=== PATIENT | female | born 1935 | race Caucasian/White ===

== ENCOUNTER 2022-12-21 12:47 | Inpatient (IN) | payer MEDICARE, SELFPAY ==
[2022-12-21] VITALS (14 sets, daily range): BP systolic 151–191; BP diastolic 73–99; PULSE 88–96; RESP 12–22; TEMP 36.3–36.8; O2SAT 94–98; BMI 23.3
--- NOTE | 2022-12-21 12:54 | DI.RAD.S_ITS ---
PROCEDURE: XR PELVIS 1-2V INDICATIONS: hip pain TECHNIQUE: An AP view of the pelvis and a dedicated AP view of the right hip were acquired. COMPARISON: None. FINDINGS: Bones: There is a moderately displaced, impacted, mildly comminuted fracture of the subcapital right femoral neck. No hip dislocation can be seen. No fractures of the bones of the pelvis can be seen. Soft tissues: Visualized bowel gas pattern is normal. No suspicious soft tissue calcifications. IMPRESSION: Subcapital right femoral neck fracture. Dictated by: Ángel Baron M.D. on 12/21/2022 at 12:55 Approved by: Ángel Baron M.D. on 12/21/2022 at 12:55
--- NOTE | 2022-12-21 12:58 | ED_ITS ---
HPI - Extremity Injury (Lower) <Leticia Bolton PA-C - Last Filed: 12/21/22 16:04> General Chief Complaint: Extremity Injury, Lower Stated Complaint: GLF w/ hip pain Time Seen by Provider: 12/21/22 12:50 Source: patient and EMS Mode of arrival: EMS History of Present Illness HPI Narrative: Patient is an 87-year-old female who tripped and fell over her 's cane earlier today and landed on her right hip and immediately experienced significant pain and could not walk. She was brought to the emergency [facility] by [facility]. She takes no medications, stating that all medications including antibiotics make her sick. She did receive 50 mics of fentanyl and Zofran on the flight over. She reports taking homeopathic remedies. She reports no significant medical problems. She is normally independently ambulatory. She did not hit her head or lose consciousness at the time of this fall. She has intermittent baseline numbness and tingling in her feet, this is not worse since her fall. Related Data Home Medications Medication Instructions Recorded Confirmed melatonin 3 mg tablet 3 mg PO BEDTIME 12/21/22 12/21/22 Allergies Allergy/AdvReac Type Severity Reaction Status Date / Time No Known Drug Allergies Allergy Verified 12/21/22 12:58 Review of Systems <Leticia Bolton PA-C - Last Filed: 12/21/22 16:04> Review of Systems ROS Unobtainable: All systems reviewed & are unremarkable except as noted in HPI and below Patient History <Leticia Bolton PA-C - Last Filed: 12/21/22 16:04> Social History Smoking Status: Never smoker Smoking Status: Never smoker alcohol intake frequency: other Substance Use Type: does not use Exam <Leticia Bolton PA-C - Last Filed: 12/21/22 16:04> Narrative Exam Narrative: GENERAL: 87 year old patient appears stated age. Well-developed patient, in no distress. NEURO: AOx3. HEAD: Atraumatic. Normocephalic. EYES: Pupils equal round and reactive. Extraocular motions intact. No scleral icterus. No injection or drainage. ENT: Nose without bleeding or purulent drainage. Airway patent. CARDIOVASCULAR: Regular rate and rhythm without murmurs, gallops, or rubs. RESPIRATORY: Clear to auscultation. Breath sounds equal bilaterally. No wheezes, rales, or rhonchi. GASTROINTESTINAL: Abdomen soft, non-tender, nondistended. EXTREMITIES: Pain in right hip. Distal circulation intact, strength 5/5 distal to the injury with ankle flexion and extension. Foot is warm and DP pulse 2 +. SKIN: No rash or erythema of visible areas Initial Vital Signs Initial Vital Signs: Vital Signs Temperature 98 F 12/21/22 12:54 Pulse Rate 91 H 12/21/22 12:54 Respiratory Rate 17 12/21/22 12:54 Blood Pressure 171/93 H 12/21/22 12:54 Pulse Oximetry 98 12/21/22 12:54 Oxygen Delivery Method Room Air 12/21/22 12:54 <Bruno Robbins DO - Last Filed: 12/21/22 16:35> Initial Vital Signs Initial Vital Signs: Vital Signs Temperature 98 F 12/21/22 12:54 Pulse Rate 91 H 12/21/22 12:54 Respiratory Rate 17 12/21/22 12:54 Blood Pressure 171/93 H 12/21/22 12:54 Pulse Oximetry 98 12/21/22 12:54 Oxygen Delivery Method Room Air 12/21/22 12:54 Course <Leticia Bolton PA-C - Last Filed: 12/21/22 16:04> Orders Ordered: ED Orders 12/21/22 12:54 XR pelvis 1-2V Stat 12/21/22 12:58 Complete Blood Count AUTO DIFF Stat Comprehensive Metabolic Panel Stat Ethanol (ETOH) Stat PTT Partial Thromboplastin Armond Stat Prothrombin Time INR Stat Type and Screen Stat 12/21/22 13:26 EKG-12 Lead Stat 12/21/22 13:30 XR hip RT 1V Stat Discontinued Medications Diphtheria/Tetanus/Acell Pertussis (Tet,Diph,Pertuss(Acell),Vac/Pf 0.5 Ml Syringe) 0.5 ml IM .ONCE ONE Stop: 12/21/22 13:02 Last Admin: 12/21/22 14:55 Dose: Not Given Documented By: ANJUM Sodium Chloride (Normal Saline 0.9%) 1,000 mls @ 500 mls/hr IV BOLUS ONE Stop: 12/21/22 15:00 Last Infusion: 12/21/22 15:48 Dose: 0 mls/hr Documented By: Admin: 12/21/22 13:33 Dose: 500 mls/hr Documented By: ETHAN Consultations Consultation #1: [id number]: Dr. Johnson, orthopedics: consulted for operative repair. Hospitalist to admit. Vital Signs Vital signs: Vital Signs - 8 hr 12/21/22 12:54 12/21/22 13:14 12/21/22 13:30 Temperature 98 F Pulse Rate 91 H 91 H Respiratory Rate 17 22 Blood Pressure 171/93 H 151/73 H Pulse Oximetry 98 97 Oxygen Delivery Method Room Air 12/21/22 13:30 12/21/22 14:16 12/21/22 14:17 Temperature Pulse Rate 88 89 Respiratory Rate 12 Blood Pressure 178/79 H Pulse Oximetry 96 Oxygen Delivery Method 12/21/22 14:17 12/21/22 14:30 12/21/22 14:30 Temperature Pulse Rate 91 H 96 H Respiratory Rate Blood Pressure 191/84 H Pulse Oximetry 96 96 Oxygen Delivery Method 12/21/22 15:00 12/21/22 15:00 12/21/22 15:30 Temperature Pulse Rate 89 Respiratory Rate Blood Pressure 157/76 H 172/87 H Pulse Oximetry 97 Oxygen Delivery Method 12/21/22 15:30 Temperature Pulse Rate 90 Respiratory Rate Blood Pressure Pulse Oximetry 96 Oxygen Delivery Method <Bruno Robbins DO - Last Filed: 12/21/22 16:35> Orders Ordered: ED Orders 12/21/22 12:54 XR pelvis 1-2V Stat 12/21/22 12:58 Complete Blood Count AUTO DIFF Stat Comprehensive Metabolic Panel Stat Ethanol (ETOH) Stat PTT Partial Thromboplastin Armond Stat Prothrombin Time INR Stat Type and Screen Stat 12/21/22 13:26 EKG-12 Lead Stat 12/21/22 13:30 XR hip RT 1V Stat Discontinued Medications Diphtheria/Tetanus/Acell Pertussis (Tet,Diph,Pertuss(Acell),Vac/Pf 0.5 Ml Syringe) 0.5 ml IM .ONCE ONE Stop: 12/21/22 13:02 Last Admin: 12/21/22 14:55 Dose: Not Given Documented By: ANJUM Sodium Chloride (Normal Saline 0.9%) 1,000 mls @ 500 mls/hr IV BOLUS ONE Stop: 12/21/22 15:00 Last Infusion: 12/21/22 15:48 Dose: 0 mls/hr Documented By: Admin: 12/21/22 13:33 Dose: 500 mls/hr Documented By: ETHAN Vital Signs Vital signs: Vital Signs - 8 hr 12/21/22 12:54 12/21/22 13:14 12/21/22 13:30 Temperature 98 F Pulse Rate 91 H 91 H Respiratory Rate 17 22 Blood Pressure 171/93 H 151/73 H Pulse Oximetry 98 97 Oxygen Delivery Method Room Air 12/21/22 13:30 12/21/22 14:16 12/21/22 14:17 Temperature Pulse Rate 88 89 Respiratory Rate 12 Blood Pressure 178/79 H Pulse Oximetry 96 Oxygen Delivery Method 12/21/22 14:17 12/21/22 14:30 12/21/22 14:30 Temperature Pulse Rate 91 H 96 H Respiratory Rate Blood Pressure 191/84 H Pulse Oximetry 96 96 Oxygen Delivery Method 12/21/22 15:00 12/21/22 15:00 12/21/22 15:30 Temperature Pulse Rate 89 Respiratory Rate Blood Pressure 157/76 H 172/87 H Pulse Oximetry 97 Oxygen Delivery Method 12/21/22 15:30 Temperature Pulse Rate 90 Respiratory Rate Blood Pressure Pulse Oximetry 96 Oxygen Delivery Method MDM - Extremity Injury (Lower) <Leticia Bolton PA-C - Last Filed: 12/21/22 16:04> Lab Data 12/21/22 12:58 12/21/22 12:58 Labs: Lab Results 12/21/22 12/21/22 12/21/22 Range/Units 12:58 12:58 12:58 WBC 15.7 H (4.5-11.0) X10^3/uL RBC 4.45 (4.0-5.2) X10^6/uL Hgb 13.7 (12.0-16.0) g/dL Hct 40.9 (36-46) % MCV 91.9 (80-100) fL MCH 30.8 (26-34) PG MCHC 33.5 (30-36) % RDW 16.5 H (11.6-14.8) % Plt Count 331 (150-400) X10^3/uL Neut % (Auto) 82.3 H (50-75) % Lymph % (Auto) 10.7 L (25-40) % [place] % (Auto) 6.3 (3-14) % Eos % (Auto) 0.2 L (2-4) % Baso % (Auto) 0.5 (0-2) % Neut # (Auto) 23402 H (2102-7380) /uL Lymph # (Auto) 1700 (6123-7164) /uL [place] # (Auto) 1000 H (0-900) /uL Eos # (Auto) 0 (0-450) /uL Baso # (Auto) 100 (0-100) /uL PT 12.1 (10.1-12.7) SECONDS INR 1.1 (0.9-1.3) APTT 22 L (26-36) SECONDS Sodium 132 L (137-145) mmol/L Potassium 4.6 (3.4-5.1) mmol/L Chloride 100 (98-107) mmol/L Carbon Dioxide 25 (22-32) mmol/L BUN 10 (7-17) mg/dL Creatinine 0.41 L (0.52-1.04) mg/dL Estimated GFR > 60 (>60) mL/min BUN/Creatinine Ratio 24.4 H (6-22) Glucose 157 H (80-110) mg/dL Calcium 9.1 (8.4-10.2) mg/dL Total Bilirubin 0.5 (0.2-1.3) mg/dL AST 36 (14-36) IU/L ALT 21 (<35) IU/L Alkaline Phosphatase 57 (38-126) U/L Total Protein 7.1 (6.3-8.2) g/dL Albumin 4.0 (3.5-5.0) g/dL Globulin 3.1 (1.7-4.1) g/dL Albumin/Globulin Ratio 1.3 (1.0-2.8) Ethyl Alcohol < 10 ( - 10) mg/dL Blood Type Antibody Screen 12/21/22 Range/Units 12:58 WBC (4.5-11.0) X10^3/uL RBC (4.0-5.2) X10^6/uL Hgb (12.0-16.0) g/dL Hct (36-46) % MCV (80-100) fL MCH (26-34) PG MCHC (30-36) % RDW (11.6-14.8) % Plt Count (150-400) X10^3/uL Neut % (Auto) (50-75) % Lymph % (Auto) (25-40) % [place] % (Auto) (3-14) % Eos % (Auto) (2-4) % Baso % (Auto) (0-2) % Neut # (Auto) (3239-6931) /uL Lymph # (Auto) (8567-2035) /uL [place] # (Auto) (0-900) /uL Eos # (Auto) (0-450) /uL Baso # (Auto) (0-100) /uL PT (10.1-12.7) SECONDS INR (0.9-1.3) APTT (26-36) SECONDS Sodium (137-145) mmol/L Potassium (3.4-5.1) mmol/L Chloride (98-107) mmol/L Carbon Dioxide (22-32) mmol/L BUN (7-17) mg/dL Creatinine (0.52-1.04) mg/dL Estimated GFR (>60) mL/min BUN/Creatinine Ratio (6-22) Glucose (80-110) mg/dL Calcium (8.4-10.2) mg/dL Total Bilirubin (0.2-1.3) mg/dL AST (14-36) IU/L ALT (<35) IU/L Alkaline Phosphatase (38-126) U/L Total Protein (6.3-8.2) g/dL Albumin (3.5-5.0) g/dL Globulin (1.7-4.1) g/dL Albumin/Globulin Ratio (1.0-2.8) Ethyl Alcohol ( - 10) mg/dL Blood Type A Negative Antibody Screen Negative Imaging Data Extremity x-ray #1: Radiologist's Impression: PROCEDURE:? XR PELVIS 1-2V ? INDICATIONS:? hip pain ? TECHNIQUE:? An AP view of the pelvis and a dedicated AP view of the right hip were acquired. ? COMPARISON:? None. ? FINDINGS:? ? Bones:? There is a moderately displaced, impacted, mildly comminuted fracture of the subcapital right femoral neck. ? No hip dislocation can be seen.? No fractures of the bones of the pelvis can be seen. ? Soft tissues:? Visualized bowel gas pattern is normal.? No suspicious soft tissue calcifications.? IMPRESSION:? Subcapital right femoral neck fracture. ? ? Dictated by: Ángel Baron M.D. on 12/21/2022 at 12:55 ? ? Approved by: Ángel Baron M.D. on 12/21/2022 at 12:55? Extremity x-ray #2: Radiologist's Impression: PROCEDURE:? XR HIP RT 1V ? INDICATIONS:? need lateral view of right hip ? TECHNIQUE:? 1 view of the hip acquired.? ? COMPARISON:? [facility], CR, XR PELVIS 1-2V, 12/21/2022, 13:03. ? FINDINGS:? ? Bones:? On this cross-table lateral view, there is a moderately to prominently displaced comminuted fracture of the femoral neck. ? Soft tissues:? No suspicious soft tissue calcifications or masses.? IMPRESSION:? Moderately to prominently displaced fracture of the right femoral neck. ? ? Dictated by: Ángel Baron M.D. on 12/21/2022 at 13:22 ? ? Approved by: Ángel Baron M.D. on 12/21/2022 at 13:23? ECG Data Interpretation: Normal sinus rhythm, rate of 91 MD 124, QRS 82. No acute ST-T changes. MDM Narrative Medical decision making narrative: Multiple etiologies for patient's symptoms considered including, but not limited to: Hip fracture, hip dislocation, pelvic fracture X-rays consistent with right radial neck fracture. Dr. Johnson notified and will take to OR tomorrow for repair. Hospitalist will admit. Patient declined pain medication while in the emergency room, stating that she is allergic to all medications. She is vegan. Discussed code status; patient states she is full code and does not have any advance directive paperwork completed. Her long-time significant other will be coming to visit. Patient's symptoms improved over duration of stay with above-stated therapies. Findings and discharge diagnosis discussed with patient/family followed by verbalization of understanding Return precautions discussed with patient/family whom verbalize understanding of diagnosis and plan <Bruno Robbins, DO - Last Filed: 12/21/22 16:35> Lab Data Labs: Lab Results 12/21/22 12/21/22 12/21/22 Range/Units 12:58 12:58 12:58 WBC 15.7 H (4.5-11.0) X10^3/uL RBC 4.45 (4.0-5.2) X10^6/uL Hgb 13.7 (12.0-16.0) g/dL Hct 40.9 (36-46) % MCV 91.9 (80-100) fL MCH 30.8 (26-34) PG MCHC 33.5 (30-36) % RDW 16.5 H (11.6-14.8) % Plt Count 331 (150-400) X10^3/uL Neut % (Auto) 82.3 H (50-75) % Lymph % (Auto) 10.7 L (25-40) % [place] % (Auto) 6.3 (3-14) % Eos % (Auto) 0.2 L (2-4) % Baso % (Auto) 0.5 (0-2) % Neut # (Auto) 62659 H (0767-3825) /uL Lymph # (Auto) 1700 (5480-3101) /uL [place] # (Auto) 1000 H (0-900) /uL Eos # (Auto) 0 (0-450) /uL Baso # (Auto) 100 (0-100) /uL PT 12.1 (10.1-12.7) SECONDS INR 1.1 (0.9-1.3) APTT 22 L (26-36) SECONDS Sodium 132 L (137-145) mmol/L Potassium 4.6 (3.4-5.1) mmol/L Chloride 100 (98-107) mmol/L Carbon Dioxide 25 (22-32) mmol/L BUN 10 (7-17) mg/dL Creatinine 0.41 L (0.52-1.04) mg/dL Estimated GFR > 60 (>60) mL/min BUN/Creatinine Ratio 24.4 H (6-22) Glucose 157 H (80-110) mg/dL Calcium 9.1 (8.4-10.2) mg/dL Total Bilirubin 0.5 (0.2-1.3) mg/dL AST 36 (14-36) IU/L ALT 21 (<35) IU/L Alkaline Phosphatase 57 (38-126) U/L Total Protein 7.1 (6.3-8.2) g/dL Albumin 4.0 (3.5-5.0) g/dL Globulin 3.1 (1.7-4.1) g/dL Albumin/Globulin Ratio 1.3 (1.0-2.8) Ethyl Alcohol < 10 ( - 10) mg/dL Blood Type Antibody Screen 12/21/22 Range/Units 12:58 WBC (4.5-11.0) X10^3/uL RBC (4.0-5.2) X10^6/uL Hgb (12.0-16.0) g/dL Hct (36-46) % MCV (80-100) fL MCH (26-34) PG MCHC (30-36) % RDW (11.6-14.8) % Plt Count (150-400) X10^3/uL Neut % (Auto) (50-75) % Lymph % (Auto) (25-40) % [place] % (Auto) (3-14) % Eos % (Auto) (2-4) % Baso % (Auto) (0-2) % Neut # (Auto) (2532-9382) /uL Lymph # (Auto) (1987-9737) /uL [place] # (Auto) (0-900) /uL Eos # (Auto) (0-450) /uL Baso # (Auto) (0-100) /uL PT (10.1-12.7) SECONDS INR (0.9-1.3) APTT (26-36) SECONDS Sodium (137-145) mmol/L Potassium (3.4-5.1) mmol/L Chloride (98-107) mmol/L Carbon Dioxide (22-32) mmol/L BUN (7-17) mg/dL Creatinine (0.52-1.04) mg/dL Estimated GFR (>60) mL/min BUN/Creatinine Ratio (6-22) Glucose (80-110) mg/dL Calcium (8.4-10.2) mg/dL Total Bilirubin (0.2-1.3) mg/dL AST (14-36) IU/L ALT (<35) IU/L Alkaline Phosphatase (38-126) U/L Total Protein (6.3-8.2) g/dL Albumin (3.5-5.0) g/dL Globulin (1.7-4.1) g/dL Albumin/Globulin Ratio (1.0-2.8) Ethyl Alcohol ( - 10) mg/dL Blood Type A Negative Antibody Screen Negative Discharge Plan Departure Patient Disposition: Admitted As Inpatient Clinical Impression: Closed fracture of neck of right radius Admit Date/Time: 12/21/22 15:49 Admit Provider: Jovita Mathur <Bruno Robbins, DO - Last Filed: 12/21/22 16:35> Cosign ED Attending Cosignature Attestation: Dr Robbins Co-Sign Statement: I was available for consultation during this patient's emergency department visit. This chart is signed by myself for administrative purposes only. I did not have direct contact with this patient during this visit. They were seen independently by the APC.
[2022-12-21 13:12] LABS: Add Manual Diff / Slide Review NO; Basophils Absolute Auto 100 /uL (0-100); Basophils Percent Auto 0.5 % (0-2); Eosinophils Absolute Auto 0 /uL (0-450); Eosinophils Percent Auto 0.2 % (2-4); Hematocrit 40.9 % (36-46); Hemoglobin 13.7 g/dL (12.0-16.0); Lymphocytes Absolute Auto 1700 /uL (1100-4500); Lymphocytes Percent Auto 10.7 % (25-40); Mean Corpuscular HGB Conc 33.5 % (30-36); Mean Corpuscular Hemoglobin 30.8 PG (26-34); Mean Corpuscular Volume 91.9 fL (80-100); Monocytes Absolute Auto 1000 /uL (0-900); Monocytes Percent Auto 6.3 % (3-14); Neutrophils Absolute Auto 12900 /uL (1500-7000); Neutrophils Percent Auto 82.3 % (50-75); Platelet Count 331 X10^3/uL (150-400); Red Blood Cell Count 4.45 X10^6/uL (4.0-5.2); Red Cell Distribution Width 16.5 % (11.6-14.8); White Blood Cell Count 15.7 X10^3/uL (4.5-11.0)
[2022-12-21 13:18] LABS: INR 1.1 (0.9-1.3); Prothrombin Time 12.1 SECONDS (10.1-12.7)
[2022-12-21 13:21] LABS: PTT Partial Thromboplastin Tim 22 SECONDS (26-36)
[2022-12-21 13:23] LABS: Alanine Aminotransferase 21 IU/L (<35); Albumin Globulin Ratio 1.3 (1.0-2.8); Alkaline Phosphatase 57 U/L (38-126); Aspartate Aminotransferase 36 IU/L (14-36); BUN Creatinine Ratio 24.4 (6-22); Bilirubin Total 0.5 mg/dL (0.2-1.3); Blood Urea Nitrogen 10 mg/dL (7-17); Calcium 9.1 mg/dL (8.4-10.2); Carbon Dioxide 25 mmol/L (22-32); Chloride 100 mmol/L (98-107); Estimated Glomerular Filt Rate > 60 mL/min (>60); Ethanol (ETOH) < 10 mg/dL; Globulin 3.1 g/dL (1.7-4.1); Glucose 157 mg/dL (80-110); HEMOLYSIS 90 (0-50); Potassium 4.6 mmol/L (3.4-5.1); Sodium 132 mmol/L (137-145); Total Protein 7.1 g/dL (6.3-8.2)
--- NOTE | 2022-12-21 13:30 | DI.RAD.S_ITS ---
PROCEDURE: XR HIP RT 1V INDICATIONS: need lateral view of right hip TECHNIQUE: 1 view of the hip acquired. COMPARISON: [facility], , XR PELVIS 1-2V, 12/21/2022, 13:03. FINDINGS: Bones: On this cross-table lateral view, there is a moderately to prominently displaced comminuted fracture of the femoral neck. Soft tissues: No suspicious soft tissue calcifications or masses. IMPRESSION: Moderately to prominently displaced fracture of the right femoral neck. Dictated by: Ángel Baron M.D. on 12/21/2022 at 13:22 Approved by: Ángel Baron M.D. on 12/21/2022 at 13:23
[2022-12-21] MEDS: SODIUM CHLORIDE 0.9% 1,000 ML 500 ML IV (13:33)
--- NOTE | 2022-12-21 17:35 | PM.HP.1 ---
History of Present Illness History of Present Illness Chief complaint: GLF w/ hip pain Narrative: 87-year-old female who does not receive regular medical care and uses homeopathic supplements presented to the emergency department today. She was walking and tripped over her 's cane, landing on her right hip. She had immediate pain and was unable to ambulate. EMS was called and she was airlifted to our hospital's emergency department. She reports difficulty with tolerating antibiotics and medications. She received fentanyl 50 mcg and Zofran on the flight secondary to her pain. However, it appears she was tolerating that reasonably well. On arrival in the emergency department, temp was 98?, heart rate 91, respiratory rate 17, BP 171/93, O2 sats 98% in room air. Labs revealed a white blood cell count of 15.7, hemoglobin 13.7, hematocrit 40.9, platelets 331. Chemistry panel revealed sodium 132, potassium 4.6, chloride 100, bicarb 25, BUN 10, creatinine 0.41, glucose 157. LFTs were within normal limits. PT and INR were within normal limits. Alcohol level was less than 10. Pelvic x-ray was performed which revealed a subcapital right femoral neck fracture. Hip x-ray revealed a moderate to prominently displaced fracture of the right femoral neck. In the emergency department, she received a normal saline bolus x1 L. She also received DTaP vaccination. Admission was recommended. Orthopedic surgery was called by the emergency department and plans are in place for the patient to undergo surgery in the morning. Patient reports she is having some pain but took Tylenol earlier this evening with mild improvement. She is reluctant to take any opioids. She reports she is overall a very healthy person with the exception of remote exercise induced asthma. She notes she typically walks every day. She states her only medical complaint in general is but she gets diffuse myalgias ?like fibromyalgia ?when she is around electromagnetic radiation. She denies any chest pain, shortness of breath, nausea, abdominal pain. [facility] Social History household members: significant other Smoking Status: Never smoker Meds Home Medications and Allergies Home Medications Medication Instructions Recorded Confirmed Type melatonin 3 mg tablet 3 mg PO BEDTIME 12/21/22 12/21/22 History Allergies Allergy/AdvReac Type Severity Reaction Status Date / Time No Known Drug Allergies Allergy Verified 12/21/22 12:58 Review of Systems Review of Systems Narrative: All other systems were reviewed negative Exam Vital Signs (past 8 hours): - 12/21/22 12:54 12/21/22 13:14 12/21/22 13:30 Temperature 98 F Pulse Rate 91 H 91 H Respiratory Rate 17 22 Blood Pressure 171/93 H 151/73 H Pulse Oximetry 98 97 Oxygen Delivery Method Room Air 12/21/22 13:30 12/21/22 14:16 12/21/22 14:17 Temperature Pulse Rate 88 89 Respiratory Rate 12 Blood Pressure 178/79 H Pulse Oximetry 96 Oxygen Delivery Method 12/21/22 14:17 12/21/22 14:30 12/21/22 14:30 Temperature Pulse Rate 91 H 96 H Respiratory Rate Blood Pressure 191/84 H Pulse Oximetry 96 96 Oxygen Delivery Method 12/21/22 15:00 12/21/22 15:00 12/21/22 15:30 Temperature Pulse Rate 89 Respiratory Rate Blood Pressure 157/76 H 172/87 H Pulse Oximetry 97 Oxygen Delivery Method 12/21/22 15:30 12/21/22 16:00 12/21/22 16:00 Temperature Pulse Rate 90 91 H Respiratory Rate Blood Pressure 175/83 H Pulse Oximetry 96 96 Oxygen Delivery Method 12/21/22 16:30 12/21/22 16:30 Temperature Pulse Rate 93 H Respiratory Rate Blood Pressure 185/99 H Pulse Oximetry 94 Oxygen Delivery Method Oxygen Delivery Method Room Air Narrative Exam Narrative: GEN: Elderly female, Alert and oriented x3, no acute distress HEENT: Normocephalic, face symmetric, pupils equal round reactive to light, extraocular movements intact, sclerae anicteric, conjunctiva clear, nares patent, oropharynx reveals an intact soft and hard palate with moist mucous membranes, dentition is fair NECK: Supple, no lymphadenopathy, thyroid without enlargement or nodularity, carotids no bruits CHEST: Respiratory excursions symmetric, clear to auscultation bilaterally CV: Regular rate and rhythm, no murmurs, rubs, gallops, PMI nondisplaced ABD: Soft, nontender, nondistended, bowel sounds present in all 4 quadrants, no organomegaly or masses appreciated EXTR: Warm, well perfused, no clubbing/cyanosis/edema SKIN: Warm and dry, without rash NEURO: Alert and oriented x3, grossly intact PSYCH: Mood and affect is within normal limits, judgment and insight are appropriate Objective Labs 12/21/22 12:58 12/21/22 12:58 Labs: Laboratory Results - last 24 hr 12/21/22 12/21/22 12/21/22 12:58 12:58 12:58 WBC 15.7 H RBC 4.45 Hgb 13.7 Hct 40.9 MCV 91.9 MCH 30.8 MCHC 33.5 RDW 16.5 H Plt Count 331 Neut % (Auto) 82.3 H Lymph % (Auto) 10.7 L [place] % (Auto) 6.3 Eos % (Auto) 0.2 L Baso % (Auto) 0.5 Neut # (Auto) 66334 H Lymph # (Auto) 1700 [place] # (Auto) 1000 H Eos # (Auto) 0 Baso # (Auto) 100 PT 12.1 INR 1.1 APTT 22 L Sodium 132 L Potassium 4.6 Chloride 100 Carbon Dioxide 25 BUN 10 Creatinine 0.41 L Estimated GFR > 60 BUN/Creatinine Ratio 24.4 H Glucose 157 H Calcium 9.1 Total Bilirubin 0.5 AST 36 ALT 21 Alkaline Phosphatase 57 Total Protein 7.1 Albumin 4.0 Globulin 3.1 Albumin/Globulin Ratio 1.3 Ethyl Alcohol < 10 Blood Type Antibody Screen 12/21/22 12:58 WBC RBC Hgb Hct MCV MCH MCHC RDW Plt Count Neut % (Auto) Lymph % (Auto) [place] % (Auto) Eos % (Auto) Baso % (Auto) Neut # (Auto) Lymph # (Auto) [place] # (Auto) Eos # (Auto) Baso # (Auto) PT INR APTT Sodium Potassium Chloride Carbon Dioxide BUN Creatinine Estimated GFR BUN/Creatinine Ratio Glucose Calcium Total Bilirubin AST ALT Alkaline Phosphatase Total Protein Albumin Globulin Albumin/Globulin Ratio Ethyl Alcohol Blood Type A Negative Antibody Screen Negative Assessment & Plan Assessment & Plan narrative: 1. Right femoral neck fracture w/moderate to prominent displacement Patient will be admitted for management of pain and disability related to her fracture. Orthopedic surgery to consult tomorrow with plans for surgical repair. Will order Tylenol and oxycodone orally for pain. As she tolerated fentanyl this has been ordered for IV use as needed. She will be NPO after midnight in anticipation of surgery. 2. Leukocytosis White blood cell count is 15.7. Elevation is likely secondary to physiologic stress. Will monitor. 3. Hyponatremia Mild at 132. Will place on low-flow IV fluids overnight. 4. Hyperglycemia Blood sugar was 157 on a nonfasting lab sample. This may also be a stress response. Will monitor on tomorrow morning's labs. 5. Elevated blood pressure As patient does not seek regular medical care, I am uncertain as to whether this is an acute pain response or chronically uncontrolled hypertension. Will have as needed hydralazine available. She does report a history of white coat hypertension. Advised she may need to have her blood pressure lowered in order to be able to undergo surgery. Code status Full per patient Prophylaxis Will hold chemical prophylaxis until she is postoperative. Disposition Admit to acute care, inpatient status. They do live in a 2 story apartment with a total of 16 stairs that she will need to navigate in order to go home. I did advise that that could be prohibitive for her return home after hospitalization and that she may require short-term rehab. Surrogate decision maker: Rad Myers, Spouse
[2022-12-21] MEDS: LACTATED RINGERS 1,000 ML 60 ML IV (18:10)
[2022-12-21] MEDS: ACETAMINOPHEN 325 MG TABLET 650 MG PO (18:10)
[2022-12-21] MEDS: HYDRALAZINE 20 MG/ML VIAL 10 MG IV (20:07)
[2022-12-21] MEDS: SENNOSIDES 8.6 MG TABLET 17.2 MG PO (20:09)
[2022-12-21] MEDS: OXYCODONE IR 5 MG TABLET PO (20:09)
[2022-12-21] MEDS: MELATONIN 3 MG TABLET PO (22:15)
[2022-12-22] VITALS (15 sets, daily range): BP systolic 124–179; BP diastolic 63–92; PULSE 79–95; RESP 11–18; TEMP 36.1–37.1; O2SAT 91–97; BMI 23.3
[2022-12-22 05:36] LABS: Add Manual Diff / Slide Review NO; Basophils Absolute Auto 0 /uL (0-100); Basophils Percent Auto 0.3 % (0-2); Eosinophils Absolute Auto 0 /uL (0-450); Eosinophils Percent Auto 0.1 % (2-4); Hematocrit 41.3 % (36-46); Hemoglobin 14.1 g/dL (12.0-16.0); Lymphocytes Absolute Auto 1200 /uL (1100-4500); Lymphocytes Percent Auto 9.7 % (25-40); Mean Corpuscular Hemoglobin 30.6 PG (26-34); Mean Corpuscular Volume 89.9 fL (80-100); Monocytes Absolute Auto 900 /uL (0-900); Monocytes Percent Auto 7.9 % (3-14); Neutrophils Absolute Auto 9800 /uL (1500-7000); Platelet Count 302 X10^3/uL (150-400); Red Cell Distribution Width 16.4 % (11.6-14.8); White Blood Cell Count 11.9 X10^3/uL (4.5-11.0)
[2022-12-22 05:54] LABS: BUN Creatinine Ratio 16.7 (6-22); Blood Urea Nitrogen 7 mg/dL (7-17); Calcium 8.7 mg/dL (8.4-10.2); Carbon Dioxide 24 mmol/L (22-32); Chloride 100 mmol/L (98-107); Estimated Glomerular Filt Rate > 60 mL/min (>60); Glucose 128 mg/dL (80-110); HEMOLYSIS < 15 (0-50); Potassium 3.5 mmol/L (3.4-5.1); Sodium 133 mmol/L (137-145)
--- NOTE | 2022-12-22 07:47 | PM.PN.1 ---
Subjective Subjective Interval history: 87-year-old female who does not receive regular medical care who was admitted yesterday with a moderate lead to prominently displaced fracture of the right femoral neck after tripping over her 's cane and sustaining a ground level fall. Patient reports she had a terrible night. She has body aches all over that she attributes to electromagnetic radiation. She felt she poorly tolerated the medication she received. She also had significant pain from her hip. Overall, she is in good spirits and is anxiously awaiting surgery. Exam Vital Signs (past 8 hours): - 12/22/22 00:00 12/22/22 05:10 Temperature 97.0 F L 98.8 F Pulse Rate 87 87 Respiratory Rate 18 18 Blood Pressure 161/86 H 173/92 H Pulse Oximetry 95 95 Oxygen Flow Rate 0 Oxygen Delivery Method Room Air Oxygen Flow Rate 0 Narrative Exam Narrative: GEN: Very pleasant elderly female, Alert and oriented x 3, NAD HEENT:NC, Face symmetric CHEST: Respiratory excursions symmetric, mild right basilar crackle, otherwise CTAB CV: RRR, no M/R/G ABD: Soft, NT/ND, BT present in all 4 quadrants, no organomegaly or masses EXTR: warm, well perfused, no C/C/E SKIN: warm and dry, no rash NEURO: Alert and oriented x 3, nonfocal Objective Labs 12/22/22 05:20 12/22/22 05:20 Labs: Laboratory Results - last 24 hr 12/21/22 12/21/22 12/21/22 12:58 12:58 12:58 WBC 15.7 H RBC 4.45 Hgb 13.7 Hct 40.9 MCV 91.9 MCH 30.8 MCHC 33.5 RDW 16.5 H Plt Count 331 Neut % (Auto) 82.3 H Lymph % (Auto) 10.7 L [place] % (Auto) 6.3 Eos % (Auto) 0.2 L Baso % (Auto) 0.5 Neut # (Auto) 01909 H Lymph # (Auto) 1700 [place] # (Auto) 1000 H Eos # (Auto) 0 Baso # (Auto) 100 PT 12.1 INR 1.1 APTT 22 L Sodium 132 L Potassium 4.6 Chloride 100 Carbon Dioxide 25 BUN 10 Creatinine 0.41 L Estimated GFR > 60 BUN/Creatinine Ratio 24.4 H Glucose 157 H Calcium 9.1 Total Bilirubin 0.5 AST 36 ALT 21 Alkaline Phosphatase 57 Total Protein 7.1 Albumin 4.0 Globulin 3.1 Albumin/Globulin Ratio 1.3 Ethyl Alcohol < 10 Blood Type Antibody Screen 12/21/22 12/22/22 12/22/22 12:58 05:20 05:20 WBC 11.9 H RBC 4.60 Hgb 14.1 Hct 41.3 MCV 89.9 MCH 30.6 MCHC 34.0 RDW 16.4 H Plt Count 302 Neut % (Auto) 82.0 H Lymph % (Auto) 9.7 L [place] % (Auto) 7.9 Eos % (Auto) 0.1 L Baso % (Auto) 0.3 Neut # (Auto) 9800 H Lymph # (Auto) 1200 [place] # (Auto) 900 Eos # (Auto) 0 Baso # (Auto) 0 PT INR APTT Sodium 133 L Potassium 3.5 Chloride 100 Carbon Dioxide 24 BUN 7 Creatinine 0.42 L Estimated GFR > 60 BUN/Creatinine Ratio 16.7 Glucose 128 H Calcium 8.7 Total Bilirubin AST ALT Alkaline Phosphatase Total Protein Albumin Globulin Albumin/Globulin Ratio Ethyl Alcohol Blood Type A Negative Antibody Screen Negative [facility] Social History household members: significant other Smoking Status: Never smoker Assessment & Plan Assessment & Plan narrative: 1. Right femoral neck fracture w/moderate to prominent displacement Patient is NPO for surgical intervention. Dr. Johnson will be consulting in taking the patient to the operating room. Although she has a lot of somatic complaints, there is no indication that she is having a side effect or allergic reaction to the medication she is been receiving. She is simply very leery of medications in general. 2. Leukocytosis White blood cell count was 15.7 on admission. It is improved at 11.9 today, consistent with physiologic stress. 3. Hyponatremia Mild at 132 on admission.? Has been on low-flow IV fluids overnight. Sodium is up to 133. Plan to saline lock IV fluids after surgery. 4. Hyperglycemia Blood sugar was 157 on a nonfasting lab sample.? This may also be a stress response.? On this morning's fasting lab, blood sugar was 128. Will send hemoglobin A1c. 5. Elevated blood pressure As patient does not seek regular medical care, I am uncertain as to whether this is an acute pain response or chronically uncontrolled hypertension.? Continue as needed hydralazine.? She does report a history of white coat hypertension.? Advised she may need additional hydralazine prior to surgery if her blood pressure is above threshold. Code status Full per patient Prophylaxis Will hold chemical prophylaxis until she is postoperative. Disposition Acute care, inpatient status. They do live in a 2 story apartment with a total of 16 stairs that she will need to navigate in order to go home.? I did advise that that could be prohibitive for her return home after hospitalization and that she may require short-term rehab. Surrogate decision maker: Rad Myers, Spouse
[2022-12-22] MEDS: HYDRALAZINE 20 MG/ML VIAL 10 MG IV (08:13)
[2022-12-22 08:28] LABS: Hemoglobin A1C% w Est Avg Glu 5.6 % (4.0-6.0)
--- NOTE | 2022-12-22 08:43 | SUR.OPER ---
Lateral on padded OR bed. Gel axillary roll. Arms secured on padded armboard with pillow supporting top arm. Padded hip positioner braces x4 - anterior and posterior chest and pelvis. Additional gel pad used anterior pelvis. Gel pad under bottom leg from knee to foot and secured with tape over sheet.
--- NOTE | 2022-12-22 08:53 | DI.RAD.S_ITS ---
PROCEDURE: XR HIP W PEL IF DONE RT 2V INDICATIONS: postop TECHNIQUE: AP pelvis and lateral view of the right hip acquired. COMPARISON: None. FINDINGS: Bones: Patient is status post right hip arthroplasty, with hardware components in expected positions. The hip joint appears congruent. The visualized bony structures appear intact. Soft tissues: Overlying postoperative changes are noted. No suspicious soft tissue densities. IMPRESSION: Expected appearance of right hip arthroplasty. Dictated by: Gabriela Alford M.D. on 12/22/2022 at 11:49 Approved by: Gabriela Alford M.D. on 12/22/2022 at 11:49
--- NOTE | 2022-12-22 09:07 | PM.HP.1 ---
History of Present Illness History of Present Illness Date Patient Seen: 12/22/22 Time Patient Seen: 09:00 Date of Onset of Symptoms: 12/21/22 Chief complaint: GLF w/ hip pain Narrative: She was at the [employer] yesterday with her significant other. They were leaning over to pet a dog and unfortunately she fell and noted the acute onset of right hip pain. She notes that she is in general quite sensitive. She says she has allergies to multiple medications and thinks that she is allergic to electromagnetic waves and she has them even in her house. [place] more comfortable [place] She lives with a significant other. They have 14 steps. She takes baby aspirin occasionally for pain but no other medications. She does not have a specific documented medication allergy. [facility] Social History household members: significant other Smoking Status: Never smoker Meds Home Medications and Allergies Home Medications Medication Instructions Recorded Confirmed Type melatonin 3 mg tablet 3 mg PO BEDTIME 12/21/22 12/21/22 History Allergies Allergy/AdvReac Type Severity Reaction Status Date / Time No Known Drug Allergies Allergy Verified 12/21/22 12:58 Review of Systems Review of Systems Narrative: Denies chest pain, was not short of breath or lightheaded prior to the fall, no new complaints. She normally ambulates well without difficulty Exam Vital Signs (past 8 hours): - 12/22/22 05:10 12/22/22 08:13 12/22/22 08:21 Temperature 98.8 F 98.0 F Pulse Rate 87 91 H 91 H Respiratory Rate 18 17 Blood Pressure 173/92 H 179/92 H 179/92 H Pulse Oximetry 95 97 Oxygen Flow Rate 0 0 12/22/22 08:33 Temperature Pulse Rate 93 H Respiratory Rate Blood Pressure 169/91 H Pulse Oximetry Oxygen Flow Rate Oxygen Delivery Method Room Air Oxygen Flow Rate 0 Narrative Exam Narrative: HEENT is benign lungs are clear, cor regular rate and rhythm, abdomen is soft and benign, right lower extremity foreshortened, pain with range of motion able to fire toe flexors and extensors, skin intact, calf soft, minimal bruising Objective Labs 12/22/22 05:20 12/22/22 05:20 Labs: Laboratory Results - last 24 hr 12/21/22 12/21/22 12/21/22 12:58 12:58 12:58 WBC 15.7 H RBC 4.45 Hgb 13.7 Hct 40.9 MCV 91.9 MCH 30.8 MCHC 33.5 RDW 16.5 H Plt Count 331 Neut % (Auto) 82.3 H Lymph % (Auto) 10.7 L [place] % (Auto) 6.3 Eos % (Auto) 0.2 L Baso % (Auto) 0.5 Neut # (Auto) 47505 H Lymph # (Auto) 1700 [place] # (Auto) 1000 H Eos # (Auto) 0 Baso # (Auto) 100 PT 12.1 INR 1.1 APTT 22 L Sodium 132 L Potassium 4.6 Chloride 100 Carbon Dioxide 25 BUN 10 Creatinine 0.41 L Estimated GFR > 60 BUN/Creatinine Ratio 24.4 H Glucose 157 H Hemoglobin A1c Calcium 9.1 Total Bilirubin 0.5 AST 36 ALT 21 Alkaline Phosphatase 57 Total Protein 7.1 Albumin 4.0 Globulin 3.1 Albumin/Globulin Ratio 1.3 Ethyl Alcohol < 10 Blood Type Antibody Screen 12/21/22 12/22/22 12/22/22 12:58 05:20 05:20 WBC 11.9 H RBC 4.60 Hgb 14.1 Hct 41.3 MCV 89.9 MCH 30.6 MCHC 34.0 RDW 16.4 H Plt Count 302 Neut % (Auto) 82.0 H Lymph % (Auto) 9.7 L [place] % (Auto) 7.9 Eos % (Auto) 0.1 L Baso % (Auto) 0.3 Neut # (Auto) 9800 H Lymph # (Auto) 1200 [place] # (Auto) 900 Eos # (Auto) 0 Baso # (Auto) 0 PT INR APTT Sodium 133 L Potassium 3.5 Chloride 100 Carbon Dioxide 24 BUN 7 Creatinine 0.42 L Estimated GFR > 60 BUN/Creatinine Ratio 16.7 Glucose 128 H Hemoglobin A1c Calcium 8.7 Total Bilirubin AST ALT Alkaline Phosphatase Total Protein Albumin Globulin Albumin/Globulin Ratio Ethyl Alcohol Blood Type A Negative Antibody Screen Negative 12/22/22 05:20 WBC RBC Hgb Hct MCV MCH MCHC RDW Plt Count Neut % (Auto) Lymph % (Auto) [place] % (Auto) Eos % (Auto) Baso % (Auto) Neut # (Auto) Lymph # (Auto) [place] # (Auto) Eos # (Auto) Baso # (Auto) PT INR APTT Sodium Potassium Chloride Carbon Dioxide BUN Creatinine Estimated GFR BUN/Creatinine Ratio Glucose Hemoglobin A1c 5.6 Calcium Total Bilirubin AST ALT Alkaline Phosphatase Total Protein Albumin Globulin Albumin/Globulin Ratio Ethyl Alcohol Blood Type Antibody Screen x-rays show a right femoral neck fracture which is displaced Assessment & Plan Assessment and plan (1) Femoral neck fracture: Status: Acute Plan She has a displaced right femoral neck fracture. I have recommended right hip unipolar. The procedure options risks benefits and complications were discussed in detail. She would like to return home. I told her she can probably go home tomorrow afternoon or possibly the next day. She lives on [place] and does have multiple steps. She is sensitive to medication and we try and minimize medications other than baby aspirin for DVT prophylaxis. Risks including but not limited to bleeding, instability, fracture, anesthetic complications, infection, wound healing issues and persistent pain despite satisfactory unipolar were discussed in detail.
[2022-12-22] MEDS: VANCOMYCIN 1,000 MG/200 ML PIGGYBACK 200 MG IV (09:12)
[2022-12-22] MEDS: LACTATED RINGERS 1,000 ML 42 ML IV (09:13)
--- NOTE | 2022-12-22 09:19 | PM.OP.1 ---
Operative Date/Time/Diagnoses Date of procedure: 12/22/22 Time of procedure: 09:20 Pre-op diagnosis: Right femoral neck fracture Post-op diagnosis: same Procedure & Clinicians Procedure: Right hip unipolar posterior approach Same procedure as scheduled: Yes Indications: The patient fell and sustained a displaced right femoral neck fracture. She is brought to the operating room for a right hip unipolar. The risks, benefits and alternatives to surgery were discussed with the patient prior to proceeding. Risks discussed included, but were not limited to, failure to relieve pain, leg length discrepancy, dislocation, stiffness, infection, nerve damage, deep venous thrombosis, pulmonary embolism, stroke, coma, heart attack, permanent paralysis and , as well as the potential need for eventual revision of the prosthetic. Surgeon: Serena [employer] Consultant: Marissa Rizo Anesthesia Type: General Operative Notes Findings: Displaced right femoral neck fracture, adequate bone, adequate stability Closure Type: primary Specimen(s): none sent Prosthetic devices, grafts, tissues, transplants, or devices: Johnson and nephew [employer] cemented size 11, standard offset, 45 mm cobalt chrome ball ball, +0 sleeve, size 10 distal cement restrictor, Estimated Blood Loss (mL): 150 Blood products transfused: none Procedure in detail: The patient was seen in the pre-operative area, where the patient identified the right hip as the operative site and this was marked with my initials. The patient received pre-operative antibiotics and was taken to the operating room and placed on the operative table in the supine position after satisfactory anesthesia. A pharmacy informaticist out was performed. Patient was placed in the lateral decubitus position and all bony prominences were carefully padded and the arms were appropriately position. A PA was used in the procedure and was essential for retraction and intraoperative positioning and safe implantation of the components. The right lower extremity was prepared from the ankle to the iliac crest with ChloroPrep in the usual fashion and draped through sterile drapes. The hip was approached through posterolateral approach. Dissection was carried out down through skin and subcutaneous tissues. The fascia was opened. Gelpi retractors were placed. A Charnley retractor was placed. A small amount of inflamed bursa was resected. The piriformis was identified and protected. The other short external rotators and capsule were carefully stripped from the posterior aspect of the femur. They were tagged and carefully retracted. The femoral neck was brought up and an osteotomy was made of the residual femoral neck approximately 1 fingerbreadth above the lesser trochanter. The head was removed without difficulty. It was carefully sized. The acetabulum was meticulously irrigated with normal saline. There were [mild] changes in the acetabulum. The acetabulum was carefully protected with an E tape. The canal was opened with a box cutting osteotome, followed by a T-handled reamer and a lateralizing reamer. The tapered reamers were then used, followed by sequential broaching. A trial head and neck were then placed and the hip relocated and checked for leg length and stability. The patient was stable in the position of sleep, of squatting, and could be put through a range of motion with 45 degrees internal rotation without dislocation. At 90 degrees flexion, internal rotation to 80? was possible before dislocation. This was felt to be satisfactory and the appropriate components were opened, and the trials were removed. The femoral canal was sized and a distal cement restrictor was placed. The bone was meticulously cleaned with pulse lavage. The canal was packed with vaginal packing with epinephrine. Antibiotics cement was mixed and carefully pressurized into the femoral canal. The femoral component was placed without difficulty. A repeat trial reduction showed good range of motion and stability. We did a brief Betadine soak after the cement had hardened. Patient had good range of motion and stability. The final head and neck were placed after carefully irrigating the wound. The capsulomuscular flap was then repaired to the greater trochanter though an awl hole using the tag sutures. The short external rotators were repaired with black braided nylon. The fascia nancy was closed with Vicryl. The subcutaneous layer was closed with interrupted barbed sutures, and the skin with a running 3-0 V-Lock suture and surgical glue. An Aquacel Ag dressing was applied and the patient was taken to recovery having tolerated the procedure well. Complications: none Post-operative Condition: stable Disposition: Acute Care Plan for aftercare: The patient will be maintained on a standard total hip replacement protocol with weight bearing as tolerated and posterior hip precautions. The patient will receive Aspirin and sequential compression devices for DVT prophylaxis. The patient will be discharged home when safe for the home environment.
[2022-12-22] MEDS: CEFAZOLIN 2 GM/100 ML PREMIX 100 ML IV ×2 (09:50→18:39)
[2022-12-22] MEDS: TRANEXAMIC ACID 1,000 MG VIAL 1000 MG INJ ×2 (09:55→11:00)
[2022-12-22] MEDS: LACTATED RINGERS 1,000 ML 60 ML IV (10:18)
[2022-12-22] MEDS: BUPIVACAINE 0.25% (PF) 60 ML, EPINEPHrine 0.3 MG INJ (10:19)
--- NOTE | 2022-12-22 10:43 | SUR.OPER ---
Vieyra in place on pt's arrival to preop, clear yellow urine, patent.
[2022-12-22] MEDS: BUPIVACAINE LIPOSOME 266 MG/20 ML VIAL INJ (11:07)
--- NOTE | 2022-12-22 11:34 | CM.DANOTE ---
DCP: Case received, EMR reviewed. Patient is currently in surgery, but met her life partner, Rad. Was able to obtain information from him regarding patient's baseline activity status prior to fall. DCP completed assessment based upon information currently available. Patient was admitted yesterday afternoon to the care of the hospitalist team. PCP: None, has seen [facility] providers in the past. Payer: confirmed: Medicare. Patient came to the hospital via ambulance secondary to a fall that occurred. According to partner, stated, she tripped over my walking stick, as I was reaching down to pet a dog. Patient was noted to have a displaced right femoral neck fracture. Notes indicate patient originally wanted to go home. Patient had surgery this morning. Met with partner in her room, for patient was in surgery. Confirmed that she resides on [address] with partner. Rad indicated that she is independent. He also indicated, she most likely will want to go home after surgery other than rehab, but the barrier is that they live on the second floor, have stairs to navigate. Mentioned the possiblity of staying in a motel if needed, [place] if they can possibly get into one. Did mention home health options, if needed, as [facility] go [facility]. P: DCP to continue to follow. May need skilled, would qualify, but will have to see how she does with P.T. and the stairs may be the barrier. [facility] is also an option. Janet Graham RN/Forcer Maker Discharge Planning/Care Management CM Discharge Assessment Start: 12/22/22 11:32 Freq: Status: Active Protocol: Document 12/22/22 11:32 (Rec: 12/22/22 11:34 [id number]) Discharge Planning Assessment Assigned Pocket Assembler Janet Graham RN/Forcer Maker Advance Directives? No History Provided By Patient,Medical Record Prior Living Arrangements House Household Members significant other Type of transporation used prior to Drives own vehicle admit Independent with ADL's Yes Is patient alert and oriented? Yes Caregiver for Another No Barriers to Discharge Yes Comment Lives on second floor of apartment, will need to navigate stairs, if home is the plan Discharge Plan Care Home Facility Transportation Arrangement If patient needs skilled, facility will pick her up, if home, then partner can transport. Referrals Initiated Other Additional Comment Patient is currently in surgery, will need to see how she does with P.T. Whiteboard Updated in Patient Room with Yes name and ext. # of Pocket Assembler Review Status In Process Next Review Type Continued Stay Review
--- NOTE | 2022-12-22 11:48 | SUR.PHASEI ---
Patient drowsy but arousable to verbal; VSS; GCS 15; dressing to right hip clean, dry and intact. Denies any pain at this time. Taking ice chips without difficulty.
[2022-12-22] MEDS: polyethylene glycoL 3350 17 GM POWD.PACK PO (12:47)
[2022-12-22] MEDS: ACETAMINOPHEN 325 MG TABLET 650 MG PO (12:47)
[2022-12-22] MEDS: LACTATED RINGERS 1,000 ML 100 ML IV ×2 (12:48→23:19)
--- NOTE | 2022-12-22 14:32 | PT-IP ANOTE ---
Attempted to conduct PT eval this afternoon x 2, however pt refused both times, stating she is feeling too fatigued/tired at the moment and would rather wait until tomorrow morning. All needs were met and call light is within reach. PT eval to be performed tomorrow morning.
[2022-12-22] MEDS: IBUPROFEN 400 MG TABLET PO (15:50)
[2022-12-23] MEDS: CEFAZOLIN 2 GM/100 ML PREMIX 100 ML IV (01:37)
--- NOTE | 2022-12-23 06:40 | PC.NURSE ---
Patient and both decline any po medications during the shift boss. Pt stated I am not hurting as long as I am not moving. Pt did agreed to take the 2nd dose of antibiotic. pt was repositioned in bed every 2 hours. Putting adequate urine via smith cath. IVF discontinued this am.
[2022-12-23 06:45] LABS: Add Manual Diff / Slide Review NO; Basophils Absolute Auto 0 /uL (0-100); Basophils Percent Auto 0.3 % (0-2); Eosinophils Absolute Auto 0 /uL (0-450); Eosinophils Percent Auto 0.1 % (2-4); Hematocrit 39.1 % (36-46); Hemoglobin 13.2 g/dL (12.0-16.0); Lymphocytes Absolute Auto 1200 /uL (1100-4500); Lymphocytes Percent Auto 9.4 % (25-40); Mean Corpuscular HGB Conc 33.7 % (30-36); Mean Corpuscular Hemoglobin 30.5 PG (26-34); Mean Corpuscular Volume 90.6 fL (80-100); Monocytes Absolute Auto 1200 /uL (0-900); Monocytes Percent Auto 9.7 % (3-14); Neutrophils Absolute Auto 10100 /uL (1500-7000); Neutrophils Percent Auto 80.5 % (50-75); Platelet Count 292 X10^3/uL (150-400); Red Blood Cell Count 4.31 X10^6/uL (4.0-5.2); Red Cell Distribution Width 16.2 % (11.6-14.8); White Blood Cell Count 12.6 X10^3/uL (4.5-11.0)
[2022-12-23 06:46] VITALS: BP 136/76; PULSE 86; RESP 18; TEMP 35.9; O2SAT 95
[2022-12-23 07:03] LABS: BUN Creatinine Ratio 18.6 (6-22); Blood Urea Nitrogen 8 mg/dL (7-17); Calcium 8.3 mg/dL (8.4-10.2); Carbon Dioxide 26 mmol/L (22-32); Chloride 99 mmol/L (98-107); Estimated Glomerular Filt Rate > 60 mL/min (>60); Glucose 103 mg/dL (80-110); Potassium 3.4 mmol/L (3.4-5.1); Sodium 130 mmol/L (137-145)
[2022-12-23 07:18] LABS: HEMOLYSIS 54 (0-50)
[2022-12-23] MEDS: ACETAMINOPHEN 325 MG TABLET 650 MG PO ×3 (07:37→20:38)
--- NOTE | 2022-12-23 07:39 | PM.PNPO.1 ---
Subjective Subjective Date Patient Seen: 12/23/22 Time Patient Seen: 07:40 Interval history: Patient is resting comfortably in bed this morning reading a book. She states her pain is a little bit worse today than it was yesterday, but well managed with medication. She says she has not worked with physical therapy yet but is looking forward to doing that this morning. Denies numbness tingling to the distal extremities, denies nausea and vomiting. Exam Vital Signs (past 8 hours): - 12/23/22 06:46 Temperature 96.6 F L Pulse Rate 86 Respiratory Rate 18 Blood Pressure 136/76 Pulse Oximetry 95 Oxygen Flow Rate 0 Oxygen Delivery Method Room Air Oxygen Flow Rate 0 Narrative Exam Narrative: Pleasant 87-year-old female. Awake, alert, and oriented. Right posterior hip bandage clean, dry, and intact. Strength and sensation intact to bilateral lower extremities. Bilateral calves soft, compressible, nontender with no palpable cords or masses. Objective Labs 12/23/22 06:00 12/23/22 06:00 Labs: Laboratory Results - last 24 hr 12/22/22 12/23/22 12/23/22 05:20 06:00 06:00 WBC 12.6 H RBC 4.31 Hgb 13.2 Hct 39.1 MCV 90.6 MCH 30.5 MCHC 33.7 RDW 16.2 H Plt Count 292 Neut % (Auto) 80.5 H Lymph % (Auto) 9.4 L [place] % (Auto) 9.7 Eos % (Auto) 0.1 L Baso % (Auto) 0.3 Neut # (Auto) 70464 H Lymph # (Auto) 1200 [place] # (Auto) 1200 H Eos # (Auto) 0 Baso # (Auto) 0 Sodium 130 L Potassium 3.4 Chloride 99 Carbon Dioxide 26 BUN 8 Creatinine 0.43 L Estimated GFR > 60 BUN/Creatinine Ratio 18.6 Glucose 103 Hemoglobin A1c 5.6 Calcium 8.3 L [facility] Social History household members: significant other Smoking Status: Never smoker alcohol intake: never Assessment & Plan Post-op Postoperative Procedures: Procedures Operation Date: 12/22/22 09:30 Actual Procedure Side Surgeon p Hip Hemiarthroplasty Bipolar Hip Right Serena Johnson MD Postoperative day: 1 Postoperative status: doing well Postoperative status narrative: Patient is progressing as expected for postop day 1 following right hip hemiarthroplasty for femoral neck fracture. Postoperative plan: routine post-op care Postoperative plan narrative: Plan to work with physical therapy today. Weightbearing as tolerated, standard posterior hip precautions. Patient may discharge when deemed safe and cleared by Physical therapy and primary team. Follow up with Orthopedics in 2 weeks. Continue multimodal pain regimen as prescribed. Aspirin 81 mg b.i.d. x 6 weeks.
[2022-12-23 08:00] VITALS: BP 177/92; PULSE 83; RESP 18; TEMP 36.8; O2SAT 95
[2022-12-23] MEDS: DOCUSATE 100 MG CAPSULE PO ×2 (08:31→20:38)
[2022-12-23] MEDS: ASPIRIN EC 81 MG TABLET PO ×2 (08:31→20:38)
[2022-12-23 09:00] VITALS: BP 152/79; RESP 89
[2022-12-23 09:30] VITALS: BP 154/97; PULSE 100
--- NOTE | 2022-12-23 09:38 | PT.IIE ---
Current Diagnoses Fracture of unspecified part of neck of right femur, initial encounter for closed fracture (12/21/22) Fracture of unspecified part of neck of unspecified femur, initial encounter for closed fracture (12/21/22) Surgery Performed Operation Date: 12/22/22 09:30 Actual Procedures p Hip Hemiarthroplasty Bipolar Hip(Right) - Serena Johnson MD Physical Therapy Inpatient Evaluation/Re-Eval M1 PT/OT-IP Prior Functional Status Start: 12/23/22 08:29 Freq: NEEDED Status: Active Protocol: Document 12/23/22 09:38 AW (Rec: 12/23/22 09:43 AW [id number]) Medical Review Prior Functional Status Medical History Reviewed Yes Communication Pt is an effective verbal communicator. Slightly [place]. Mobility and Gait Independent without assistive device. Climbs stairs daily. Dances socially. Activities of Daily Living and IADL's Independent. Pt has never driven but her partner does. Social History Household Members significant other Living Arrangements Apartment/Condo Number of Floors (Floors) One Floor Number of Stairs To Enter/Railing? Pt lives in a second floor apartment, accessible by 7 steps + landing + 9 steps with right rails ascending. 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 M2 PT-IP Current Condition Start: 12/23/22 08:29 Freq: NEEDED Status: Active Protocol: Document 12/23/22 09:38 AW (Rec: 12/23/22 09:43 AW [id number]) Physical Therapy Current Condition Current Condition Evaluation Date 12/23/22 Treatment Diagnosis R femoral neck fracture s/p hemiarthroplasty with posterior approach Onset Date 12/21/22 M3 PT-IP Subjective Start: 12/23/22 08:29 Freq: NEEDED Status: Active Protocol: Document 12/23/22 09:38 AW (Rec: 12/23/22 10:22 AW [id number]) Subjective Physical Therapy Visit Type Type Initial Evaluation Visit Start Time 09:00 Visit Stop Time 09:38 Total Visit Minutes 38 Notes Pt's SO was present and attentive throughout this assessment Physical Therapy Visit Comments Patient Comments Pt is willing to participate with PT Patient Goals Pt hopes to avoid going to SNF Therapy Pain Assessment Pain When Pain Assessed During Mobility Pain Present Pain Present Pain Reported Location Right HIp Scale Used not quantified Pain Management Techniques Distraction,Re-positioning, Timing of Activity with Medications M4 PT-IP Mobility and Gait Start: 12/23/22 08:29 Freq: NEEDED Status: Active Protocol: Document 12/23/22 09:38 AW (Rec: 12/23/22 10:22 AW [id number]) PT-Bed Mobility Assessment Supine to Sit Supine to Sit Standby Assistance Scooting Scooting to Edge of Bed Standby Assistance PT-Transfer Assessment Sit to and From Stand Sit to and from Stand Standby Assistance,Use of Upper Extremities Equipment Transfer Assistive Device Front Wheeled Walker Transfers Transfer Destination Chair Transfer Technique Stand Step Pivot Transfer Ability Level of Assist Standby Assistance Comments Mobility Comments Pt was found lying in bed, agreeable to PT. Educated pt on her posterior hip precautions and weightbearing status. BP monitored throughout was stable. See Other Assessments for details. Pt transitioned to sitting EOB with cues for hip precautions and SBA. She stood and used FWW to test weightbearing on RLE. She walked around the foot of the bed to the chair, transferring SBA with verbal cues for hand and foot placement for hip precautions. She stood again and walked 25 feet in the room before returning to the chair . Gait Assessment Gait Gait Assistance Required: Standby Assistance Distance (Feet) 25 Able to Maintain Weight Bearing Status Yes During Gait Assistive Devices Assistive Device Gait Belt,Front Wheeled Walker Orthotic/Prosthetic Devices or Brace: No Gait Deviations General Gait Pattern Antalgic,Decreased Stride Length,Decreased Feet Clearance,Step-to Gait Factors Limiting Gait Function Factors Limiting Gait Function Pain Stair Climbing Assessment Comments Stair Climbing Comments Not assessed. Pt has 16 steps up to her apartment with R rail ascending. PT-Balance Assessment Sitting Balance and Reactions Static Sitting Balance Ability Normal Dynamic Sitting Balance Ability Normal Standing Balance and Reactions Static Standing Balance Ability Good Dynamic Standing Balance Ability Good Device Used FWW M5 PT-IP Objective Assessments Start: 12/23/22 08:29 Freq: NEEDED Status: Active Protocol: Document 12/23/22 09:38 AW (Rec: 12/23/22 10:22 AW [id number]) Orientation Orientation/Cognition Level of Alertness Alert Orientation Name,Day of Week,Place, Situation Language Function Ability Hard of Hearing Safety Awareness Understands Safety Issues Memory Description No Deficits Noted Gross Range of Motion Upper Extremity ROM Assessment Within Functional Limits Lower Extremity ROM Assessment Within Functional Limits Strength Upper Extremity Strength Assessment Within Functional Limits Lower Extremity Strength Assessment Right Impaired Hip 3+/5 Knee 4/5 Ankle 4/5 Comments Strength Comments LLE grossly 4/5 proximally to 4+/5 distally Sensation Assessment Sensation Gross Sensation WNL Other Assessments Other Other Assessments BP 165/85 HR 93 supine BP 163/103 HR 100 sitting BP 154/97 HR 100 sitting M6 PT-IP Treatment Start: 12/23/22 08:29 Freq: NEEDED Status: Active Protocol: Document 12/23/22 09:38 AW (Rec: 12/23/22 10:22 AW [id number]) Physical Therapy Treatment Exercises Exercises Ankle Pumps,Gluteal Sets,Quad Sets,Heel Slides Education Education Provided Precautions,Weight Bearing Status,Post-Op Packet,Safety M7 PT-IP Assessment and Plan Start: 12/23/22 08:29 Freq: NEEDED Status: Active Protocol: Document 12/23/22 09:38 AW (Rec: 12/23/22 10:22 AW [id number]) PT Summary Assessment and Plan Potential Rehabilitation Potential Excellent Status of Condition at Evaluation Evolving Summary Impairments Pain,Strength,Balance,Bed Mobility,Transfers,Gait Assessment Summary Megan is an 87 yo woman seen for PT evaluation on POD1 following right hip hemiarthroplasty with posterior approach. She fell and fractured her proximal femur on Friday, had surgery on Friday. She has no significant past medical history. She has never used her Medicare card previous to this admission. She is very active and independent in all regards at baseline. She does not drive but her significant other does. She lives in a second floor apartment on [address]. CLOF: Pt is mobilizing with good understanding of her precautions using a FWW with no more than SBA and occasional verbal cues for precautions. She will ultimately be safe to discharge home with assist and home PT but will need to progress her functional gait and stair management first. Goals Bed Mobility Goal Independent Transfer Goal Independent,Front Wheeled Walker Gait Goal Independent,Front Wheel Walker Gait Distance 100 Other Goals - up/down 15 steps using R rail ascending with SBA Days to Meet Goals 5 Frequency of Treatment Frequency Of Treatment Twice a Day Treatment Plan Physical Therapy Treatment Plan Bed Mobility Training,Transfer Training,Gait Training, Therapeutic Exercise,Balance Retraining,Post Op Education, Discharge Planning,Hot or Cold Pack,Neuromuscular Re-ed Other Recommendations and Next Treatment review precautions, progress Focus gait, assess stairs Precautions Posterior Hip Precautions No Hip Flexion > 90 degrees,No Hip Internal Rotation,No Hip Adduction Weight Bearing Status Weight Bearing Status Weight Bear as Tolerated Recommendations To Nursing Amount of Assist Needed Standby Assistance Discharge Recommendations PT Discharge Recommendations Home with Assistance,Home Health Equipment Needed for Home Before FWW, raised toilet seat vs Discharge commode, shower chair Transportation Needs at Discharge Private Vehicle
--- NOTE | 2022-12-23 10:48 | OT.IP.EVAL ---
Current Diagnoses Fracture of unspecified part of neck of right femur, initial encounter for closed fracture (12/21/22) Fracture of unspecified part of neck of unspecified femur, initial encounter for closed fracture (12/21/22) Surgery Performed Operation Date: 12/22/22 09:30 Actual Procedures p Hip Hemiarthroplasty Bipolar Hip(Right) - Serena Johnson MD Occupational Therapy Inpatient Evaluation/Re-Eval M1 PT/OT-IP Prior Functional Status Start: 12/23/22 08:29 Freq: NEEDED Status: Active Protocol: Document 12/23/22 10:50 CGR (Rec: 12/23/22 11:02 CGR [id number]) Medical Review Prior Functional Status Medical History Reviewed Yes Communication Pt is an effective verbal communicator. Slightly [place]. Mobility and Gait Independent without assistive device. Climbs stairs daily. Dances socially. Walks 2 miles a day Activities of Daily Living and IADL's Independent. Pt has never driven but her partner does. Social History Household Members significant other Living Arrangements House Number of Floors (Floors) One Floor Number of Stairs To Enter/Railing? Pt lives in a second floor apartment, accessible by 7 steps + landing + 9 steps with right rails ascending. 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 They have walking sticks but have already called to get equipment for home. M2 OT-IP Current Condition Start: 12/23/22 10:50 Freq: Status: Active Protocol: Document 12/23/22 10:50 CGR (Rec: 12/23/22 11:02 CGR [id number]) Occupational Therapy Current Condition Current Condition Evaluation Date 12/23/22 Treatment Diagnosis R unipolar hip Diagnosis Onset Date 12/21/22 Post Operative Precautions Posterior Hip Precautions No Hip Flexion > 90 degrees,No Hip Internal Rotation,No Hip Adduction Weight Bearing Status Weight Bearing Status Weight Bear as Tolerated M3 OT- IP Subjective and Pain Start: 12/23/22 10:50 Freq: Status: Active Protocol: Document 12/23/22 10:50 CGR (Rec: 12/23/22 11:02 CGR [id number]) OT- Subjective Occupational Therapy Visit Type Type Initial Evaluation Visit Start Time 10:15 Visit Stop Time 10:48 Total Visit Minutes 33 Notes Pt's sig other present throughout session. OT Pain Assessment Pain When Pain Assessed At Rest Pain Present Pain Present Pain Reported Location Right HIp Intensity 6 Scale Used Numeric (0 - 10) Management Techniques Modification of Treatment,Re- positioning,Timing of Activity with Medications M4 OT- IP ADL's Start: 12/23/22 10:50 Freq: Status: Active Protocol: Document 12/23/22 10:50 CGR (Rec: 12/23/22 11:02 CGR [id number]) OT [id number] Comments OT Self-Feeding Comments not meal time OT ADL-Grooming General Evaluation Grooming Ability Independent Comments OT Grooming Comments standing at sink OT ADL-Oral Care General Eval Oral Care Ability Independent Areas of Assistance Brushing Teeth Comments Oral Care Comments standing at sink OT ADL-Dressing General Eval Lower Body Dressing Ability Standby Assistance Areas Needing Assistance Socks Comments OT Dressing Comments demonsrated use of sock aid and chief order dispatcher for LB dressing socks and underwear. Pt performed doffing and donning of sock to the RLE. OT ADL-Toileting General Evaluation Toileting Ability Standby Assistance Comments OT Toileting Comments Pt demonstrated simulated toileting seated on toielt as pt still with smith. OT ADL-Bathing Comments OT Bathing Comments not performed M5 OT- IP IADL's Start: 12/23/22 10:50 Freq: Status: Active Protocol: Document 12/23/22 10:50 CGR (Rec: 12/23/22 11:02 CGR [id number]) OT-Instrumental Activities of Daily Living Deficits IADL Deficits Identified No Deficits Home Safety Awareness Awareness of Need for Assistance at Home Good Awareness Ability to Problem Solve Emergency Able to Problem Solve Situations Medication Management Medication Management No Deficits Identified Money Management Money Management No Deficits Identified Meal Preparation Meal Preparation Caregiver Provides Assist Recreation Officer Recreation Officer Caregiver Provides Assist Driving Driving Concerns Identified Regarding Safety M6 OT- IP Functional Cognition Start: 12/23/22 10:50 Freq: Status: Active Protocol: Document 12/23/22 10:50 CGR (Rec: 12/23/22 11:02 R [id number]) Cognitive Factors Limiting Selfcare Function Cognitive Ability Level of Alertness Alert Patient Orientation Name,Age,Birthday,Month,Date, Year,Day of Week,Place, Situation Attention Span Ability Capable of Focused Attention, Capable of Sustained Attention Ability to Follow Commands Able to Follow One Step Commands with Increased Time, Able to Follow One Step Commands with Repetition OT- Vision and Hearing OT- Hearing Assessment OT- Hearing Assessment Hearing Impaired OT- Vision Assessment Visual Acuity Glasses For Reading Visual Attentiveness WFL Occular Pursuits WFL Visual Convergence WFL M7 OT- IP Mobility and Balance Start: 12/23/22 10:50 Freq: Status: Active Protocol: Document 12/23/22 10:50 CGR (Rec: 12/23/22 11:02 CGR [id number]) OT-Transfer Assessment Sit to and From Stand Sit to and from Stand Standby Assistance Transfers Transfer Ability Standby Assistance Technique Transfer Destination Chair,Toilet Transfer Technique Stand Step Pivot Devices Transfer Assistive Devices Gait Belt,Front Wheeled Walker Comments Mobility Comments VC for proper placement of herhands and RLE. OT- Balance Assessment Sitting Balance and Reactions Static Sitting Balance Ability Good Dynamic Sitting Balance Ability Good M8 OT- IP Objective Assessments Start: 12/23/22 10:50 Freq: Status: Active Protocol: Document 12/23/22 10:50 CGR (Rec: 12/23/22 11:02 CGR [id number]) OT Gross Range of Motion Upper Extremity Range of Motion Assessment Within Functional Limits OT Strength Upper Extremity Strength Assessment Within Functional Limits Comments Strength Comments 4/5 OT- Coordination Assessment Upper Extremity Finger to Nose Test Within Functional Limits Finger Tapping Test Within Functional Limits OT-Muscle Tone Assessment Muscle Tone WNL Yes OT Sensation Assessment Edema Edema Absent M9 OT- IP Assessment and Plan Start: 12/23/22 10:50 Freq: Status: Active Protocol: Document 12/23/22 10:50 CGR (Rec: 12/23/22 11:02 CGR [id number]) OT Summary Assessment and Plan Potential Rehabilitation Potential Excellent Analytic Complexity at Evaluation Moderate Summary OT Impairments Pain,Balance,Functional Mobility,Dressing,Toileting, Bathing,Toilet Transfers, Shower Transfers,Activity Tolerance Progress Towards Goals Slow Progress due to Pain Assessment Summary Pt presents as a moderate complexity evaluation s/p admit for R unipolar hip. Pt is mobilizing with SBA and was educated on LB dressing. Pt will do stairs later today with P.T. per patient and would like to discharge home. Pt is likely to be safe at home given her sig others assist and current mobility if she can manage stairs. Pt will benefit from 1-2 more sessions for OT services. Goals Grooming Goal Independent Dressing Goal Independent Toileting Goal Independent Bathing Goal Independent Toilet Transfer Goal Independent Shower Transfer Goal Independent Days to Meet Goals 2 Frequency of Treatment Frequency Of Treatment Once a Day Treatment Plan OT Treatment Plan ADL Training,Functional Mobility,Patient/Family Education,Discharge Planning Other Treatment Recommendations and Next shower, LB dressing (already Treatment Focus trained but further practice) Discharge Recommendations OT Discharge Recommendations Home with / Assist Available Home Equipment Needs walker, BSC/3 in 1, chief order dispatcher, sock aide Transportation Needs at Discharge Private Vehicle
--- NOTE | 2022-12-23 14:51 | PC.NURSE ---
Patient smith dc'd at 1240 this afternoon, Due to void at 2039.
--- NOTE | 2022-12-23 14:55 | PT.IPTN ---
Current Diagnoses Fracture of unspecified part of neck of right femur, initial encounter for closed fracture (12/21/22) Fracture of unspecified part of neck of unspecified femur, initial encounter for closed fracture (12/21/22) Surgery Performed Operation Date: 12/22/22 09:30 Actual Procedures p Hip Hemiarthroplasty Bipolar Hip(Right) - Serena Johnson MD Physical Therapy Treatment Note M2 PT-IP Current Condition Start: 12/23/22 08:29 Freq: NEEDED Status: Active Protocol: Document 12/23/22 09:38 AW (Rec: 12/23/22 09:43 AW [id number]) Physical Therapy Current Condition Current Condition Evaluation Date 12/23/22 Treatment Diagnosis R femoral neck fracture s/p hemiarthroplasty with posterior approach Onset Date 12/21/22 M3 PT-IP Subjective Start: 12/23/22 08:29 Freq: NEEDED Status: Active Protocol: Document 12/23/22 14:53 AW (Rec: 12/23/22 15:11 AW [id number]) Subjective Physical Therapy Visit Type Type Treatment Note Visit Start Time 14:28 Visit Stop Time 14:53 Total Visit Minutes 25 Physical Therapy Visit Comments Patient Comments Pt and her SO are able to recall all three posterior hip precautions. Therapy Pain Assessment Pain When Pain Assessed During Mobility Pain Present Pain Present Pain Reported Location Right HIp Intensity 6 Scale Used Numeric (0 - 10) Pain Management Techniques Timing of Activity with Medications M4 PT-IP Mobility and Gait Start: 12/23/22 08:29 Freq: NEEDED Status: Active Protocol: Document 12/23/22 14:53 AW (Rec: 12/23/22 15:11 AW [id number]) PT-Transfer Assessment Sit to and From Stand Sit to and from Stand Standby Assistance Equipment Transfer Assistive Device Gait Belt,Front Wheeled Walker Transfers Transfer Destination Chair Transfer Technique Stand Step Pivot Transfer Ability Level of Assist Standby Assistance Comments Mobility Comments Pt was sitting up in the chair , alert and very agreeable to PT. She stood SBA with good attention to precautions and used FWW to ambulate to the therapy stairs ~80 feet. After stairs assessment, PT offered w/c escort but pt preferred to walk. Returning to the room , pt transferred to the chair where she was left with call light and tray table handy. Gait Assessment Gait Gait Assistance Required: Standby Assistance Distance (Feet) 160 Able to Maintain Weight Bearing Status Yes During Gait Assistive Devices Assistive Device Gait Belt,Front Wheeled Walker Orthotic/Prosthetic Devices or Brace: No Gait Deviations General Gait Pattern Antalgic,Decreased Stride Length,Decreased Feet Clearance Factors Limiting Gait Function Factors Limiting Gait Function Pain Comments Gait Comments Pt ambulated with emerging step through pattern and good weightbearing. No sign of balance impairment or instability. Stair Climbing Assessment Evaluation Level of Assist On Stairs Standby Assistance,Contact Guard Assistance,1 Person Assistance Devices Stair Climbing Assistive Devices Right Railing Technique/Endurance Stair Climbing Direction Ascend and Descend Stair Climbing Technique Step to Step Number of Steps Climbed 3 Stair Climbing Set # Repetitions (reps) 1 Comments Stair Climbing Comments Pt tended to reach for the left rail but was able to manage without L side support when cued. She may benefit from use of a SPC in left hand . PT-Balance Assessment Sitting Balance and Reactions Static Sitting Balance Ability Good Dynamic Sitting Balance Ability Good Standing Balance and Reactions Static Standing Balance Ability Good Dynamic Standing Balance Ability Good Device Used FWW M5 PT-IP Objective Assessments Start: 12/23/22 08:29 Freq: NEEDED Status: Active Protocol: Document 12/23/22 09:38 AW (Rec: 12/23/22 10:22 AW [id number]) Orientation Orientation/Cognition Level of Alertness Alert Orientation Name,Day of Week,Place, Situation Language Function Ability Hard of Hearing Safety Awareness Understands Safety Issues Memory Description No Deficits Noted Gross Range of Motion Upper Extremity ROM Assessment Within Functional Limits Lower Extremity ROM Assessment Within Functional Limits Strength Upper Extremity Strength Assessment Within Functional Limits Lower Extremity Strength Assessment Right Impaired Hip 3+/5 Knee 4/5 Ankle 4/5 Comments Strength Comments LLE grossly 4/5 proximally to 4+/5 distally Sensation Assessment Sensation Gross Sensation WNL Other Assessments Other Other Assessments BP 165/85 HR 93 supine BP 163/103 HR 100 sitting BP 154/97 HR 100 sitting M6 PT-IP Treatment Start: 12/23/22 08:29 Freq: NEEDED Status: Active Protocol: Document 12/23/22 14:53 AW (Rec: 12/23/22 15:11 AW [id number]) Physical Therapy Treatment Education Education Provided Precautions,Weight Bearing Status,Safety Other Treatments Other Treatment Performed Discussed equipment needs, car transfers, and bed transfers at length with pt and her SO asking relevant questions about each scenario. M7 PT-IP Assessment and Plan Start: 12/23/22 08:29 Freq: NEEDED Status: Active Protocol: Document 12/23/22 14:53 AW (Rec: 12/23/22 15:11 AW [id number]) PT Summary Assessment and Plan Potential Rehabilitation Potential Excellent Summary Impairments Pain,Strength,Balance,Bed Mobility,Transfers,Gait Progress Towards Goals Progressing Toward Goals Assessment Summary Megan has some concerns about her right hip resting in internal rotation and functionally rotating inward during gait and stairs management. Educated pt that her alignment is likely related to lateral hip weakness which will be addressed in her post op rehab . Megan recalls and functionally implements her precautions. She progressed her gait distance significantly this afternoon. She was able to climb a few stairs without complaint of increased pain. Will continue to work with her on stair management, in particular, as she may benefit from the addition of a SPC for improved stability on stairs. She will need to be able to climb 16 stairs to safely enter her home. Pt's significant other has made good progress in securing DME for home discharge which appears to be pt's plan. PT recommends discharge home with assist and home PT to progress pt's strength and gait. Goals Bed Mobility Goal Independent Transfer Goal Independent,Front Wheeled Walker Gait Goal Independent,Front Wheel Walker Gait Distance 100 Other Goals - up/down 15 steps using R rail ascending with SBA Days to Meet Goals 5 Frequency of Treatment Frequency Of Treatment Twice a Day Treatment Plan Physical Therapy Treatment Plan Bed Mobility Training,Transfer Training,Gait Training, Therapeutic Exercise,Balance Retraining,Post Op Education, Discharge Planning,Hot or Cold Pack,Neuromuscular Re-ed Other Recommendations and Next Treatment trial SPC on stairs, review Focus precautions Precautions Posterior Hip Precautions No Hip Flexion > 90 degrees,No Hip Internal Rotation,No Hip Adduction Weight Bearing Status Weight Bearing Status Weight Bear as Tolerated Recommendations To Nursing Amount of Assist Needed 1 Person Assist Discharge Recommendations PT Discharge Recommendations Home with Assistance,Home Health Equipment Needed for Home Before FWW, raised toilet seat vs Discharge commode, shower chair Transportation Needs at Discharge Private Vehicle
--- NOTE | 2022-12-23 15:18 | P.PN_ITS ---
Subjective Subjective Interval history: 87-year-old female who does not receive regular medical care who was admitted with a displaced fracture of the right femoral neck after tripping over her 's cane and sustaining a ground level fall. Pain is minimal today, up and moving well. She has a lot of stairs at home and would benefit from another night in the hospital according to discussion with therapy and staff. Exam Vital Signs (past 8 hours): - 12/23/22 08:00 12/23/22 09:00 12/23/22 09:30 Temperature 98.3 F Pulse Rate 83 100 H Respiratory Rate 18 89 H Blood Pressure 177/92 H 152/79 H 154/97 H Pulse Oximetry 95 Oxygen Flow Rate 0 Oxygen Delivery Method Room Air Oxygen Flow Rate 0 Narrative Exam Narrative: GEN: Very pleasant elderly female, Alert and oriented x 3, NAD HEENT:NC, Face symmetric EXTR: warm, well perfused, no C/C/E SKIN: warm and dry, no rash NEURO: Alert and oriented x 3, nonfocal Objective Labs 12/23/22 06:00 12/23/22 06:00 Labs: Laboratory Results - last 24 hr 12/23/22 12/23/22 06:00 06:00 WBC 12.6 H RBC 4.31 Hgb 13.2 Hct 39.1 MCV 90.6 MCH 30.5 MCHC 33.7 RDW 16.2 H Plt Count 292 Neut % (Auto) 80.5 H Lymph % (Auto) 9.4 L [place] % (Auto) 9.7 Eos % (Auto) 0.1 L Baso % (Auto) 0.3 Neut # (Auto) 17838 H Lymph # (Auto) 1200 [place] # (Auto) 1200 H Eos # (Auto) 0 Baso # (Auto) 0 Sodium 130 L Potassium 3.4 Chloride 99 Carbon Dioxide 26 BUN 8 Creatinine 0.43 L Estimated GFR > 60 BUN/Creatinine Ratio 18.6 Glucose 103 Calcium 8.3 L PFSH Social History household members: significant other Smoking Status: Never smoker alcohol intake: never Assessment & Plan Assessment & Plan narrative: 1. Right femoral neck fracture w/moderate to prominent displacement POD #1 R hip hemiarthoplasty with orthopedic surgery continue pain control, PT/OT multiple stairs at home, but doing well with therapies, probable discharge home tomorrow. 2. Leukocytosis White blood cell count was 15.7 on admission. It is improved today, consistent with physiologic stress. 3. Hyponatremia Continues to be mild and patient is asymptomatic. No further monitoring at this time. 4. Hyperglycemia Blood sugar was 157 on a nonfasting lab sample.? This may also be a stress response.? A1c was 5.6%. 5. Elevated blood pressure - As patient does not seek regular medical care, I am uncertain as to whether this is an acute pain response or chronically uncontrolled hypertension.? Continue as needed hydralazine.? She does report a history of white coat hypertension. - recommend outpatient follow up with primary care. She will need PCP for home health and above medical follow up. Code status Full per patient Prophylaxis Will hold chemical prophylaxis until she is postoperative. Disposition Acute care, inpatient status. They do live in a 2 story apartment with a total of 16 stairs that she will need to navigate in order to go home.?Likely discharge home tomorrow. Surrogate decision maker: Rad Myers, Spouse
--- NOTE | 2022-12-23 17:53 | PC.NURSE ---
Day shift: Picked up patient care at 1645. Gave Medical priority elisabethy pass to for d/c tomorrow that RN Coordinator Dee Dee had already printed out. CMS +. Dressing on R hip CDI. Will continue to monitor.
[2022-12-23 19:55] VITALS: BP 161/84; PULSE 85; RESP 20; TEMP 36.6; O2SAT 97
[2022-12-23 20:46] VITALS: BP 152/88; PULSE 89
[2022-12-24 07:00] VITALS: BP 175/90; PULSE 85; RESP 16; TEMP 37.2; O2SAT 92
[2022-12-24] MEDS: ACETAMINOPHEN 325 MG TABLET 650 MG PO (08:12)
[2022-12-24] MEDS: DOCUSATE 100 MG CAPSULE PO (08:16)
[2022-12-24] MEDS: ASPIRIN EC 81 MG TABLET PO (08:16)
--- NOTE | 2022-12-24 08:29 | P.DS_ITS ---
History of Present Illness History of Present Illness Date Patient Seen: 12/24/22 Time Patient Seen: 08:29 Chief complaint: GLF w/ hip pain Narrative: Per admitting provider, She was at the [employer] yesterday with her significant other. They were leaning over to pet a dog and unfortunately she fell and noted the acute onset of right hip pain. She notes that she is in general quite sensitive. She says she has allergies to multiple medications and thinks that she is allergic to electromagnetic waves and she has them even in her house. [place] is more comfortable [place] She lives with a sig nificant other. They have 14 steps. She takes baby aspirin occasionally for pain but no other medications. She does not have a specific documented medication allergy. Discharge Providers Provider Date of admission: 12/21/22 15:49 Discharge Date: 12/24/22 Consults: 12/21/22 17:24 Consult to Physician Routine Comment: Consulting Provider: Serena Johnson Reason for consultation: Hip fx Has provider been notified: Yes 12/22/22 08:53 Consult to Anesthesiology Routine Comment: Consulting Provider: Anesthesiologist Reason for consultation: Regional block for post operative pain control 12/22/22 12:22 Consult to Discharge Planning Routine Comment: Consult to Occupational Therapy Evaluate & Treat Comment: Physician Instructions: Evaluate and treat Consult to Physical Therapy Evaluate & Treat Comment: Physician Instructions: post op JEFFREY protocol Discharge provider: Harshil Allen DO Summary Hospital Course Discharge Diagnosis: 1. Right femoral neck fracture w/moderate to prominent displacement 2. Leukocytosis, reactive 3. Hyponatremia, mild, asymptomatic 4. Hyperglycemia, reactive 5. Elevated blood pressure Hospital Course: This is an 87 year old female with no significant PMH on no medications who presented after a ground level fall and was admitted with a R femoral neck fracture. She underwent surgical repair with a hemiarthoplasty on 12/23. She did well postoperatively, and after initial difficuty with pain control she did very well with physical and occupational therapies and was recommended for discharge home with home health. She was prescribed pain medications on discharge, and aspirin 81 mg BID for 6 weeks for DVT prevention per orthopedics. Her BP was elevated, but patient reports white coat hypertension and I do suspect this to be a response to ongoing pain. A1c was checked and was 5.6%. I recommend BP monitoring as an outpatient with lifestyle modifications, and follow up with a primary care provider to further evaluate in the outpatient setting. She will follow up with orthopedics 2 weeks after discharge per their instructions. Time Spent with Patient Time spent: Greater than 30 minutes Exam Vital Signs (past 8 hours): Oxygen Delivery Method Room Air Oxygen Flow Rate 0 Narrative Exam Narrative: GEN: Very pleasant elderly female, Alert and oriented x 3, NAD HEENT:NC, Face symmetric EXTR: warm, well perfused, no C/C/E SKIN: warm and dry, no rash NEURO: Alert and oriented x 3, nonfocal Objective Labs 12/23/22 06:00 12/23/22 06:00 [facility] Social History household members: significant other Smoking Status: Never smoker alcohol intake: never Discharge Plan Discharge Plan Patient Disposition: Home Health Service Provider Discharge Comment: You were admitted to the hospital with a hip fracture. This was repaired with the orthopedic surgeons. If using aspirin for pain control, do not combine with the baby aspirin. Discharge orders & Medications Prescriptions: New acetaminophen 325 mg Tablet 650 mg PO Q6H PRN (Reason: Fever/Mild Pain (1-3)) Qty: 90 0RF Rx Instructions: No to exceed 3,000 mg daily - including amount in [place] rx. aspirin 81 mg Tablet,Delayed Release (Dr/Ec) 81 mg PO BID Qty: 84 0RF ibuprofen 400 mg Tablet 400 mg PO Q4H PRN (Reason: Pain, Mild (1-3)) Qty: 90 0RF hydrocodone-acetaminophen 5-325 mg Tablet 1 tab PO Q4H PRN (Reason: Pain, Moderate (4-6)) Qty: 20 0RF Continued melatonin 3 mg Tablet 3 mg PO BEDTIME Follow up/Referrals: Miscellaneous,DoctorMD [Non-Staff] - Serena Johnson MD [Physician] - 01/08/23 1:30 pm (Appt:01/08 check in at 1:[address] Johnson @ [address] [place] [address] ) Diet/Activity/Treatments Diet: Diet as Tolerated Activity: Up and walking, weightbearing as tolerated with assistive device as needed. Cold/Heat Therapy: Ice to hip as needed Skin/Wound/Dressing Care Report to your healthcare provider any signs of infection, such as:: chills, fever, night sweats, unusual drainage and unusual redness Dressing: Keep dressing clean, dry, and intact until 2 week follow up with ort peg Visit Report/Discharge Packet Instructions: DI for Hip Replacement Stand Alone Forms: Patient Portal/API, Stroke Signs & Symptoms, Surgery Discharge Discharges patient from system. Discharge Date/Time: 12/24/22 11:15
--- NOTE | 2022-12-24 09:18 | CM.DPC ---
DCP Cont. Met bedside with pt/spouse to discuss d/c home today. PLANT FACILITIES TECHNICIAN discussed plan w/pt and spouse re: plan for f/u at the [facility] to establish care, in order to obtain outpatient Home Health PT/OT/RN. Spouse will plan to contact them tomorrow to set up the appt. PLANT FACILITIES TECHNICIAN also explained that the RN will come in and tell them about what time to expect leaving today. They expressed understanding. [place] have [place] ferry [place], deny any further needs at this time.
--- NOTE | 2022-12-24 09:31 | PT.IPTN ---
Current Diagnoses Fracture of unspecified part of neck of right femur, initial encounter for closed fracture (12/21/22) Fracture of unspecified part of neck of unspecified femur, initial encounter for closed fracture (12/21/22) Surgery Performed Operation Date: 12/22/22 09:30 Actual Procedures p Hip Hemiarthroplasty Bipolar Hip(Right) - Serena Johnson MD Physical Therapy Treatment Note M2 PT-IP Current Condition Start: 12/23/22 08:29 Freq: NEEDED Status: Active Protocol: Document 12/23/22 09:38 AW (Rec: 12/23/22 09:43 AW [id number]) Physical Therapy Current Condition Current Condition Evaluation Date 12/23/22 Treatment Diagnosis R femoral neck fracture s/p hemiarthroplasty with posterior approach Onset Date 12/21/22 M3 PT-IP Subjective Start: 12/23/22 08:29 Freq: NEEDED Status: Active Protocol: Document 12/24/22 09:54 TS (Rec: 12/24/22 10:13 TS [id number]) Subjective Physical Therapy Visit Type Type Treatment Note Visit Start Time 09:31 Visit Stop Time 09:54 Total Visit Minutes 23 Notes Spouse present Number of DRAWER LINER Visits 1 Physical Therapy Visit Comments Patient Comments Pt found resting in chair, getting dressed with SO, agreeable to PT. Therapy Pain Assessment Pain When Pain Assessed During Mobility Pain Present Pain Present Pain Reported Location Right HIp Intensity 4 Scale Used Numeric (0 - 10) M4 PT-IP Mobility and Gait Start: 12/23/22 08:29 Freq: NEEDED Status: Active Protocol: Document 12/24/22 09:54 TS (Rec: 12/24/22 10:13 TS [id number]) PT-Transfer Assessment Sit to and From Stand Sit to and from Stand Standby Assistance Equipment Transfer Assistive Device Gait Belt,Front Wheeled Walker Orthotic/Prosthetic Devices or Brace: No Comments Mobility Comments Pt found resting in chair, agreeable to PT. Pt recalled 2 /3 hip precautions(no internal rotation). Sit to stand from chair SBA w/FWW and cues for pushing from arms of chair to come into standing. She ambulated ~150' SBA w/FWW and a slow step thru gait, has good balance with no buckling of LEs. She performed stairs x9 ascending/descending with R rail and SBA, cues provided step sequencing. She ambulated back to room, stand to sit in chair SBA with use of amrs of chair. pt was educated again on hip precautions, post-op ex and ambulation at home. Pt was left with spouse in room, ready to d/c home. Gait Assessment Gait Gait Assistance Required: Standby Assistance Distance (Feet) 150 Able to Maintain Weight Bearing Status Yes During Gait Assistive Devices Assistive Device Gait Belt,Front Wheeled Walker Orthotic/Prosthetic Devices or Brace: No Gait Deviations General Gait Pattern Antalgic,Decreased Stride Length,Decreased Feet Clearance Factors Limiting Gait Function Factors Limiting Gait Function Pain Comments Gait Comments See mobility comments Stair Climbing Assessment Evaluation Level of Assist On Stairs Standby Assistance,1 Person Assistance Devices Stair Climbing Assistive Devices Right Railing Technique/Endurance Stair Climbing Direction Ascend and Descend Stair Climbing Technique Step to Step Number of Steps Climbed 9 Stair Climbing Set # Repetitions (reps) 1 Comments Stair Climbing Comments See mobility comments PT-Balance Assessment Sitting Balance and Reactions Static Sitting Balance Ability Good Dynamic Sitting Balance Ability Good Standing Balance and Reactions Static Standing Balance Ability Good Dynamic Standing Balance Ability Good Device Used FWW M5 PT-IP Objective Assessments Start: 12/23/22 08:29 Freq: NEEDED Status: Active Protocol: Document 12/23/22 09:38 AW (Rec: 12/23/22 10:22 AW [id number]) Orientation Orientation/Cognition Level of Alertness Alert Orientation Name,Day of Week,Place, Situation Language Function Ability Hard of Hearing Safety Awareness Understands Safety Issues Memory Description No Deficits Noted Gross Range of Motion Upper Extremity ROM Assessment Within Functional Limits Lower Extremity ROM Assessment Within Functional Limits Strength Upper Extremity Strength Assessment Within Functional Limits Lower Extremity Strength Assessment Right Impaired Hip 3+/5 Knee 4/5 Ankle 4/5 Comments Strength Comments LLE grossly 4/5 proximally to 4+/5 distally Sensation Assessment Sensation Gross Sensation WNL Other Assessments Other Other Assessments BP 165/85 HR 93 supine BP 163/103 HR 100 sitting BP 154/97 HR 100 sitting M6 PT-IP Treatment Start: 12/23/22 08:29 Freq: NEEDED Status: Active Protocol: Document 12/24/22 09:54 TS (Rec: 12/24/22 10:13 TS [id number]) Physical Therapy Treatment Education Education Provided Precautions,Weight Bearing Status,Safety Other Treatments Other Treatment Performed Discussed car transfer, benefits of post-ex and educated on precautions. M7 PT-IP Assessment and Plan Start: 12/23/22 08:29 Freq: NEEDED Status: Active Protocol: Document 12/24/22 09:54 TS (Rec: 12/24/22 10:13 TS [id number]) PT Summary Assessment and Plan Potential Rehabilitation Potential Excellent Summary Impairments Pain,Strength,Balance,Bed Mobility,Transfers,Gait Progress Towards Goals Progressing Toward Goals Assessment Summary Megan is progressing well with her mobility. She is SBA with FWW for sit to stands and with gait ~150'. She progressed stairs to x9 SBA with R rail. She did require some cueing for step sequencing. She had some difficulty recalling hip precautions, 2/3, did not recall internal rotation. PT is recommending return home with assist and HHPT. Goals Bed Mobility Goal Independent Transfer Goal Independent,Front Wheeled Walker Gait Goal Independent,Front Wheel Walker Gait Distance 100 Other Goals - up/down 15 steps using R rail ascending with SBA Days to Meet Goals 5 Frequency of Treatment Frequency Of Treatment Twice a Day Treatment Plan Physical Therapy Treatment Plan Bed Mobility Training,Transfer Training,Gait Training, Therapeutic Exercise,Balance Retraining,Post Op Education, Discharge Planning,Hot or Cold Pack,Neuromuscular Re-ed Precautions Posterior Hip Precautions No Hip Flexion > 90 degrees,No Hip Internal Rotation,No Hip Adduction Weight Bearing Status Weight Bearing Status Weight Bear as Tolerated Recommendations To Nursing Amount of Assist Needed Standby Assistance Discharge Recommendations PT Discharge Recommendations Home with Assistance,Home Health Equipment Needed for Home Before FWW, raised toilet seat vs Discharge commode, shower chair Transportation Needs at Discharge Private Vehicle
--- NOTE | 2022-12-24 10:34 | OT.IP.TRT ---
Current Diagnoses Fracture of unspecified part of neck of right femur, initial encounter for closed fracture (12/21/22) Fracture of unspecified part of neck of unspecified femur, initial encounter for closed fracture (12/21/22) Surgery Performed Operation Date: 12/22/22 09:30 Actual Procedures p Hip Hemiarthroplasty Bipolar Hip(Right) - Serena Johnson MD Occupational Therapy Treatment Note M2 OT-IP Current Condition Start: 12/23/22 10:50 Freq: Status: Active Protocol: Document 12/23/22 10:50 CGR (Rec: 12/23/22 11:02 CGR [id number]) Occupational Therapy Current Condition Current Condition Evaluation Date 12/23/22 Treatment Diagnosis R unipolar hip Diagnosis Onset Date 12/21/22 Post Operative Precautions Posterior Hip Precautions No Hip Flexion > 90 degrees,No Hip Internal Rotation,No Hip Adduction Weight Bearing Status Weight Bearing Status Weight Bear as Tolerated M3 OT- IP Subjective and Pain Start: 12/23/22 10:50 Freq: Status: Active Protocol: Document 12/24/22 10:27 [facility] (Rec: 12/24/22 10:34 [facility] [id number]) OT- Subjective Occupational Therapy Visit Type Type Treatment Note Visit Start Time 10:18 Visit Stop Time 10:27 Total Visit Minutes 9 Occupational Therapy Visit Comments Patient Comments Pt in the rom with her and already dressed. Patient/Caregiver Goals To go home. OT Pain Assessment Pain When Pain Assessed At Rest Pain Present Pain Present Pain Reported M4 OT- IP ADL's Start: 12/23/22 10:50 Freq: Status: Active Protocol: Document 12/24/22 10:27 [facility] (Rec: 12/24/22 10:34 [facility] [id number]) OT ADL-Dressing Comments OT Dressing Comments Re-eduated pt on LB dressing equipment. OT ADL-Bathing Comments OT Bathing Comments Spoke us use of FWW to help get into the shower in addition to a shower chair . Encourages pt to get another FWW , one for the shower and another one for other needs to encourage not to get water on the floor. Otherwise to be sure the fww is completely dry after use of the shower. M5 OT- IP IADL's Start: 12/23/22 10:50 Freq: Status: Active Protocol: Document 12/23/22 10:50 [facility]GR (Rec: 12/23/22 11:02 CGR [id number]) OT-Instrumental Activities of Daily Living Deficits IADL Deficits Identified No Deficits Home Safety Awareness Awareness of Need for Assistance at Home Good Awareness Ability to Problem Solve Emergency Able to Problem Solve Situations Medication Management Medication Management No Deficits Identified Money Management Money Management No Deficits Identified Meal Preparation Meal Preparation Caregiver Provides Assist Hand Buffing Wheel Former Hand Buffing Wheel Former Caregiver Provides Assist Driving Driving Concerns Identified Regarding Safety M6 OT- IP Functional Cognition Start: 12/23/22 10:50 Freq: Status: Active Protocol: Document 12/24/22 10:27 [facility] (Rec: 12/24/22 10:34 [facility] [id number]) Cognitive Factors Limiting Selfcare Function Cognitive Comments Cognitive Assessment Comments Pt needing reminders to incorporate her hip precautions for ADL and mobility needs. Able to talk to pt about use of gait belt to assist to help move her leg and to make sure to get close to the edge of the bed before getting up. M7 OT- IP Mobility and Balance Start: 12/23/22 10:50 Freq: Status: Active Protocol: Document 12/23/22 10:50 [facility]GR (Rec: 12/23/22 11:02 R [id number]) OT-Transfer Assessment Sit to and From Stand Sit to and from Stand Standby Assistance Transfers Transfer Ability Standby Assistance Technique Transfer Destination Chair,Toilet Transfer Technique Stand Step Pivot Devices Transfer Assistive Devices Gait Belt,Front Wheeled Walker Comments Mobility Comments VC for proper placement of her hands and RLE. OT- Balance Assessment Sitting Balance and Reactions Static Sitting Balance Ability Good Dynamic Sitting Balance Ability Good M8 OT- IP Objective Assessments Start: 12/23/22 10:50 Freq: Status: Active Protocol: Document 12/23/22 10:50 CGR (Rec: 12/23/22 11:02 CGR [id number]) OT Gross Range of Motion Upper Extremity Range of Motion Assessment Within Functional Limits OT Strength Upper Extremity Strength Assessment Within Functional Limits Comments Strength Comments 4/5 OT- Coordination Assessment Upper Extremity Finger to Nose Test Within Functional Limits Finger Tapping Test Within Functional Limits OT-Muscle Tone Assessment Muscle Tone WNL Yes OT Sensation Assessment Edema Edema Absent M9 OT- IP Assessment and Plan Start: 12/23/22 10:50 Freq: Status: Active Protocol: Document 12/24/22 10:27 [facility] (Rec: 12/24/22 10:34 [facility] [id number]) OT Summary Assessment and Plan Potential Rehabilitation Potential Excellent Analytic Complexity at Evaluation Moderate Summary OT Impairments Pain,Balance,Functional Mobility,Dressing,Toileting, Bathing,Toilet Transfers, Shower Transfers,Activity Tolerance Progress Towards Goals Progressing Toward Goals Assessment Summary Pt already dressed when OT came in , able to finalize OT equipment needs and safety suggestions with her . Pt to go home with her to assist. Goals Grooming Goal Independent Dressing Goal Independent Toileting Goal Independent Bathing Goal Independent Toilet Transfer Goal Independent Shower Transfer Goal Independent Days to Meet Goals 2 Frequency of Treatment Frequency Of Treatment Once a Day Treatment Plan OT Treatment Plan ADL Training,Functional Mobility,Patient/Family Education,Discharge Planning Discharge Recommendations OT Discharge Recommendations Home with 28/10 Assist Available Home Equipment Needs walker, BSC/3 in 1, administrative services manager, sock aide Transportation Needs at Discharge Private Vehicle
[2022-12-24] MEDS: IBUPROFEN 400 MG TABLET PO (11:07)
--- NOTE | 2022-12-24 12:27 | PC.NURSE ---
Addendum entered by Jovana Vallejo R.N. 12/24/22 12:31: discharged at approximately 1115 Original Note: Pt is A&Ox4, VSS, afebrile. Patient is cleared for discharge this morning by PA, evaluating patient at bedside. She is ambulating with steady gait using FWW, and able to complete stairs with PT. She verbalizes pain is well controlled with prn tylenol and ibuprofen. Aquacel dressing c/d/i. She verbalizes understanding of discharge medications, hip precautions, site care , s/sx of infection, as well as follow up appointment scheduled on 01/08 with Ortho. Pharmacy at bedside answering medication questions. Nurse escorted patient via w/ch with to private vehicle for discharge home on at 11 a.m. today.
== END 2022-12-24 11:15 | disposition home or self-care (01) | DRG 522 ==
LOC: ED 15:15 → AC 15:50
PROVIDERS: Orthopaedic Surgery; Admitting Provider Family Medicine; Emergency Provider Physician Assistant; Referring Provider Physician Assistant; Visit Provider Family Medicine
PROC: 0SRR0JZ Replacement of Right Hip Joint, Femoral Surface with Synthetic Substitute, Open Approach (ICD-10-PCS; CPT 27125; principal; 2022-12-22 09:30)
DX: S72.011A Unspecified intracapsular fracture of right femur, initial encounter for closed fracture (principal); E87.1 Hypo-osmolality and hyponatremia; W01.0XXA Fall on same level from slipping, tripping and stumbling without subsequent striking against object, initial encounter; R73.9 Hyperglycemia, unspecified; R03.0 Elevated blood-pressure reading, without diagnosis of hypertension
CPT/HCPCS: 36415; 72170; 73501; 73502; 80048; 80053; 80320; 83036; 85025; 85610; 85730; 86850; 86900; 86901; 93005; 93010; 96360; 96361; 97116; 97161; 97166; 97530; 97535; 99284; C1776; C9290; J0171; J0360; J0690; J1100; J1170; J2405; J2704; J3010